=== PATIENT | male | born 1955 | race African-American/Black ===

== ENCOUNTER 2023-12-01 16:52 | Emergency (ER) | payer MEDICARE, MEDICAID ==
[~2023-12-01] VITALS: Ht 188 cm; Wt 122.7 kg
[2023-12-01 18:23] VITALS: BP 194/113; PULSE 71; RESP 18; O2SAT 98
[2023-12-01] MEDS ORDERED: HYD25TP TOP (18:47)
[2023-12-01] MEDS ORDERED: CEPH500C PO (18:47)
== END 2023-12-01 19:02 | disposition home or self-care (01) ==
LOC: ER 16:52
DX: L03.113 Cellulitis of right upper limb (principal); L03.313 Cellulitis of chest wall; I10 Essential (primary) hypertension; Z86.73 Personal history of transient ischemic attack (TIA), and cerebral infarction without residual deficits

== ENCOUNTER 2024-01-03 17:07 | Emergency (ER) | payer MEDICARE, MEDICAID ==
[~2024-01-03] VITALS: Ht 177.8 cm; Wt 118.0 kg
[~2024-01-03 17:07] MED LIST: CEPH500C PO; HYD25TP TOP
[2024-01-03 19:10] LABS: Basophils # (auto) 0.1 10 ^3/uL (0-0.2); Basophils % (auto) 0.6 % (0.0-2.0); Eosinophils # (auto) 0 10 ^3/uL (0-0.8); Hematocrit 44.8 % (41.0-53.0); Hemoglobin 15.3 g/dL (13.5-17.5); Lymphocytes # (auto) 1.5 10 ^3/uL (0.4-5.4); Lymphocytes % (auto) 7.8 % (10.0-50.0); Mean Corpuscular Hgb Conc. 34.1 g/dL (32.0-36.0); Mean Corpuscular Volume 84.9 fL (80.0-100.0); Monocytes # (auto) 2.5 10 ^3/uL (0-1.3); Monocytes % (auto) 13.1 % (0.0-12.0); Neutrophils # (auto) 14.8 10 ^3/uL (1.6-8.6); Neutrophils % (auto) 78.5 % (37.0-80.0); Red Blood Cells 5.28 10^6/uL (4.5-5.90); Red Cell Distribution Width 15.3 % (11.8-14.3); White Blood Cell 18.8 10^3/uL (4.4-10.8)
[2024-01-03 19:31] LABS: Alanine Aminotransferase 28 U/L (7-40); Albumin 4.2 g/dL (3.2-4.8); Alkaline Phosphatase 135 U/L (46-116); Anion Gap 7 (5-15); Aspartate Aminotransferase 23 U/L (13-40); BUN/Creatinine Ratio 15.2 (10.0-20.0); Bilirubin, Total 1.8 mg/dL (0.2-1.0); Blood Urea Nitrogen 22 mg/dL (9-23); Calcium 9.3 mg/dL (8.7-10.4); Carbon Dioxide 28 mmol/L (20-30); Chloride 102 mmol/L (98-107); Glucose 106 mg/dL (74-106); Lipase 32 U/L (12-53); Sodium 137 mmol/L (136-145); Total Protein 6.4 g/dL (5.7-8.2)
[2024-01-03] MEDS: IOHEXOL 300 MG/ML 100ML BOTTLE IJ ONE (20:27)
[2024-01-04] MEDS: FAMOTIDINE 20 MG TAB PO ONE (02:00)
[2024-01-04] MEDS: ACETAMINOPHEN 325 MG TAB PO ONE (02:00)
[2024-01-04] MEDS: MAALOX PLUS or MAALOX 30 ML PO ONE (02:00)
[2024-01-04] MEDS: levoFLOXacin 500MG 100 ML IV ONE (03:10)
[2024-01-04 04:00] VITALS: PULSE 88; RESP 20; O2SAT 90
[2024-01-04] MEDS ORDERED: LEVO500T91 PO (04:28)
[2024-01-04 07:35] VITALS: BP 103/66; PULSE 80; RESP 16; TEMP 98; O2SAT 95
== END 2024-01-04 08:37 | disposition home or self-care (01) ==
LOC: EDBD 17:07 → ER 17:07
DX: N39.0 Urinary tract infection, site not specified (principal); I10 Essential (primary) hypertension; Z86.73 Personal history of transient ischemic attack (TIA), and cerebral infarction without residual deficits; Z88.0 Allergy status to penicillin
CPT/HCPCS: 36415; 71045; 74177; 80053; 83690; 84484; 85025; 93005; 96365; 99285; J1956; Q9967

== ENCOUNTER 2024-10-17 16:48 | Inpatient (IN) | payer MEDICARE, MEDICAID, OTHER ==
[~2024-10-17] VITALS: Ht 188 cm; Wt 140.0 kg
[2024-10-17 05:00] VITALS: BP 135/66; PULSE 77; RESP 16; TEMP 98; O2SAT 90
[~2024-10-17 16:48] MED LIST changes: +LEVO500T91 PO
--- NOTE | 2024-10-17 16:58 | ECG ---
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
--- NOTE | 2024-10-17 18:08 | ED.PDOC ---
HPI Comments 69 y/o M,with PMHx of MO, CVA, and HTN presents to the ED for CC of chest pain. Patient states, that he has been experiencing chest pain with associated shortness of breath x1hr RN OSTOMY. Patient relays, that he had a ground fall x2days ago and has since been experiencing left arm numbness, shoulder pain, and cervical pain following trauma. Patient reports, that he is unsure if chest pain is related to symptoms associated with fall. Patient denies palpitations, LOC, head injury, open wounds, headache, nausea, or vomiting. No other symptoms or modifying factors present at this time. Chief Complaint: Chest Pain Time Seen by MD: 18:00 Primary Care Provider: CHEN Myers Notes: Nurses Notes, Medications, Allergies Allergies: Uncoded Allergies: PENICILLIN (Allergy, Unknown, 12/01/23) Home Meds Active Scripts Levofloxacin Hemihydrate (LEVAQUIN 500 MG) 500 Mg Tab, 500 MG PO DAILY for 7 Days, #7 TAB Prov:THOR BOWDEN MD 01/04/24 Hydrocortone (Hydrocortisone 2.5%) 1 Applic Ap, 1 APPLIC TOP BIDP for 7 Days, #30 GRAMS Prov:MARVIN CURIEL 12/01/23 Cephalexin Monohydrate (Cephalexin) 500 Mg Cap, 1 CAP PO QID for 5 Days, #20 CAP Prov:MARVIN CURIEL 12/01/23 Information Source: Patient Mode of Arrival: Wheelchair Severity: Moderate Timing: Hours Duration: Since onset Prehospital treatment: None Location: Substernal Radiation: No Radiation Onset: At Rest Cardiac Risk Factors: HTN PE Risk Factors: None History of: None Modifying Factors: Nothing Associated Signs and Symptoms: SOB Past Medical History PAST MEDICAL HISTORY: CVA, HTN, MO Surgical History: Denies all surgeries Family History Family History: Reviewed,noncontributory to illness Social History Smoker: Non-Smoker Alcohol: Denies ETOH Use Drugs: Denies Drug Use Lives In: Home Constitutional: denies: chills, diaphoresis, fatigue, fever, malaise, sweats, weakness, others EENTM: denies: blurred vision, double vision, ear bleeding, ear discharge, ear drainage, ear pain, ear ringing, eye pain, eye redness, hearing loss, mouth pain, mouth swelling, nasal discharge, nose bleeding, nose congestion, nose pain, photophobia, tearing, throat pain, throat swelling, voice changes, others Respiratory: reports: shortness of breath; denies: cough, hemoptysis, orthopnea, SOB at rest, SOB with excertion, stridor, wheezing, others Cardiovascular: reports: chest pain, left arm pain, others (left arm weakness); denies: dizzy spells, diaphoresis, Dyspnea on exertion, edema, irregular heart beat, lightheadedness, palpitations, PND, syncope Gastrointestinal: denies: abdomen distended, abdominal pain, blood streaked bowels, constipated, diarrhea, dysphagia, difficulty swallowing, hematemesis, melena, nausea, poor appetite, poor fluid intake, rectal bleeding, rectal pain, vomiting, others Genitourinary: denies: burning, dysuria, flank pain, frequency, hematuria, incontinence, penile discharge, penile sore, pain, testicle pain, testicle swelling, urgency, others Neurological: denies: dizziness, fainting, headache, left sided numbness, left sided weakness, numbness, paresthesia, pre-existing deficit, right sided numbness, right sided weakness, seizure, speech problems, tingling, tremors, weakness, others Musculoskeletal: denies: back pain, gout, joint pain, joint swelling, muscle pain, muscle stiffness, neck pain, others Integumetry: denies: bruises, change in color, change in hair/nails, dryness, laceration, lesions, lumps, rash, wounds, others Allergic/Immunocompromised: denies: Difficulty Healing, Frequent Infections, Hives, Itching, others Hematologic/Lymphatic: denies: anemia, blood clots, easy bleeding, easy bruising, swollen glands, others Endocrine: denies: excessive hunger, excessive sweating, excessive thirst, excessive urination, flushing, intolerance to cold, intolerance to heat, unexplained weight gain, unexplained weight loss, others Psychiatric: denies: anxiety, bipolar disorder, depression, hopeless, panic disorder, schizophrenia, sleepless, suicidal, others All Other Systems: Reviewed and Negative Physical Exam General Appearance: Moderate Distress, Obese HEENT: Normal ENT Inspection, Pharynx Normal, TMs Normal Neck: Full Range of Motion, Non-Tender, Normal, Normal Inspection Respiratory: Chest Non-Tender, Lungs Clear, No Accessory Muscle Use, No Respiratory Distress, Normal Breath Sounds Cardiovascular: No Edema, No JVD, No Murmur, No Gallop, Normal Peripheral Pulses, Regular Rate/Rhythm Breast Exam: Deferred Gastrointestinal: No Organomegaly, Non Tender, No Pulsatile Mass, Normal Bowel Sounds, Soft, Other (Severe obesity with a protuberant abdomen) Genitalia: Deferred Pelvic: Deferred Rectal: Deferred Extremities: Decreased range of motion, Tender Musculoskeletal : Location: Left Extremity Location: Arm, Forearm, Hand, Shoulder Apperance: Swelling, Limited ROM, Tenderness: Moderate Neurologic: Alert, candy maker helper II-XII nml as Tested, No Motor Deficits, Normal Affect, Normal Mood, No Sensory Deficits Cerebellar Function: NOT DONE Reflexes: NOT DONE Skin: Dry, Normal Color, Warm Peripheral Pulses: 1+ carotid (R), 1+ carotid (L) Lymphatic: No Adenopathy EKG EKG : Pulse Rate (adult): 98 [place]: Normal Cardiac Rhythm: NSR, PVC's Comments Bigeminy Was a procedure done? Was a procedure done?: No CP Differential Dx Differential Diagnosis: Angina, Anxiety / Panic Attack, Electrolyte Disorder, Other (Cervical spine radiculopathy) Differential Diagnosis: HTN Essential Differential Diagnosis: Angina, Chest Wall Pain, Costochondritis, Esophageal reflux/spasm, Other (Tendonitis) X-Ray, Labs, Meds, VS Vital Signs Date Time Temp Pulse Resp B/P (MAP) Pulse Ox O2 Delivery O2 Flow Rate FiO2 10/17/24 18:12 98 10/17/24 17:33 98.0 89 18 148/81 (103) 95 98.0 10/17/24 16:55 98 Lab Test 10/17/24 18:44 10/17/24 17:45 Range/Units Troponin I High Sensitivity 14 13 </=54 ng/L White Blood Count 9.0 4.4-10.8 10^3/uL Red Blood Count 5.30 4.5-5.90 10^6/uL Hemoglobin 16.5 13.5-17.5 g/dL Hematocrit 49.5 41.0-53.0 % Mean Corpuscular Volume 93.3 80.0-100.0 fL Mean Corpuscular Hemoglobin 31.1 28.0-32.0 pg Mean Corpuscular Hemoglobin Concent 33.4 32.0-36.0 g/dL Red Cell Distribution Width 14.9 H 11.8-14.3 % Platelet Count 188 140-450 10^3/uL Mean Platelet Volume 9.2 6.9-10.8 fL Neutrophils (%) (Auto) 55.9 37.0-80.0 % Lymphocytes (%) (Auto) 28.1 10.0-50.0 % Monocytes (%) (Auto) 11.1 0.0-12.0 % Eosinophils (%) (Auto) 4.0 0.0-7.0 % Basophils (%) (Auto) 0.9 0.0-2.0 % Neutrophils # (Auto) 5.0 1.6-8.6 10 ^3/uL Lymphocytes # (Auto) 2.5 0.4-5.4 10 ^3/uL Monocytes # (Auto) 1.0 0-1.3 10 ^3/uL Eosinophils # (Auto) 0.4 0-0.8 10 ^3/uL Basophils # (Auto) 0.1 0-0.2 10 ^3/uL Nucleated Red Blood Cells 0.1 % Prothrombin Time Pending Prothrombin Time INR Pending Activated Partial Thromboplast Time Pending Sodium Level Pending Potassium Level Pending Chloride Level Pending Carbon Dioxide Level Pending Anion Gap Pending Blood Urea Nitrogen Pending Creatinine Pending Glomerular Filtration Rate Calc Pending BUN/Creatinine Ratio Pending Serum Glucose Pending Calcium Level Pending Magnesium Level Pending Total Bilirubin Pending Aspartate Amino Transferase (AST) Pending Alanine Aminotransferase (ALT) Pending Alkaline Phosphatase Pending Total Protein Pending Albumin Pending X-Ray, Labs, Meds, VS Comment Course in the emergency department eventful patient came in complaining of chest pain and severe pain to his left shoulder going all the way to the left arm Chest x-ray EKG shows normal sinus rhythm with a multiple PVCs and bigeminy is C-spine CT is negative The shoulder shows rotator cuff tear need further care Troponin 14 and 13 Patient will be admitted for further care Laboratory data pending Dr. Arechiga to follow Time of 1ST Reevaluation: 18:30 Reevaluation 1ST: Unchanged Patient Education/Counseling: Diagnosis, Treatment Family Education/Counseling: No Family Present Assigned to Dr. dr arechiga Change of Shift?: Yes Departure 1 Departure Time of Disposition: 19:23 Impression: Primary Impression: Chest pain Qualified Codes: I20.89 - Other forms of angina pectoris Additional Impressions: Supraventricular bigeminy Rotator cuff tear arthropathy of left shoulder History of myocardial infarction History of CVA (cerebrovascular accident) Disposition: 09 ADMITTED INPATIENT Admit to: Tele Condition: Fair Critical Care Note Critical Care Time?: No Stability Stability form required: Yes Unstable for transfer: Telemetry monitoring (Telemetry monitoring required), Requires medication (Requires Med for stabilization) Heart Score Heart Score: Heart Score Response (Comments) Value History Slightly Suspicious 0 EKG Repolarization Disturb 1 Age >65 2 Risk Factors 1 or 2 risk factors 1 Troponin Normal limit 0 Total 4 I personally scribed for STEPH MANJARREZ MD ([email or web address]) on 10/17/24 at 18:08. Electronically submitted by Bette Ornelas ([email or web address]). STEPH MANJARREZ MD Oct 17, 2024 18:08
--- NOTE | 2024-10-17 18:47 | DVH ---
CLINICAL INDICATION: Tendonitis cervical radiculopathy TECHNIQUE: 2 radiographic views of the left shoulder were obtained. Comparison: None FINDINGS/IMPRESSION: There is no evidence of acute fracture or dislocation. Narrowing of the left acromial humeral joint space may be secondary to rotator cuff tear. If this is of clinical concern recommend nonemergent MRI. The alignment is anatomical. There is no radiopaque foreign body.
--- NOTE | 2024-10-17 18:56 | DVH ---
EXAM: CT CERVICAL WITHOUT CONTRAST INDICATION: Radiculopathy EXAM DATE: 10/17/2024 06:20 PM COMPARISON: None TECHNIQUE: Multiple axial CT images of the cervical spine were obtained using bone algorithm. Axial a nd coronal reformatting was done. Bone and soft tissue windows were reviewed. Radiation Dose Information: CT Dose: CTDI volume is 25.86 mGy. Dose-length product is 686.41 mGy*cm FINDINGS: The cervical alignment is intact. No acute cervical spine fracture is identified. The vertebral body heights are intact. No suspicious osseous lesions are identified. No significant degenerative changes are identified. There is no prevertebral soft tissue swelling. IMPRESSION: 1. No evidence of acute cervical spine fracture or traumatic malalignment. All CT scans at this medical facility are performed using dose modulation techniques as appropriate t o a performed exam including the following: Automated exposure control was utilized; adjustment of th e MA and/or KV according to patient size; and use of iterative reconstruction technique.
[2024-10-17 19:48] LABS: Basophils # (auto) 0.1 10 ^3/uL (0-0.2); Basophils % (auto) 0.9 % (0.0-2.0); Eosinophils # (auto) 0.4 10 ^3/uL (0-0.8); Hematocrit 49.5 % (41.0-53.0); Hemoglobin 16.5 g/dL (13.5-17.5); Lymphocytes # (auto) 2.5 10 ^3/uL (0.4-5.4); Lymphocytes % (auto) 28.1 % (10.0-50.0); Mean Corpuscular Hemoglobin 31.1 pg (28.0-32.0); Mean Corpuscular Hgb Conc. 33.4 g/dL (32.0-36.0); Mean Corpuscular Volume 93.3 fL (80.0-100.0); Monocytes % (auto) 11.1 % (0.0-12.0); Neutrophils % (auto) 55.9 % (37.0-80.0); Nucleated Red Blood Cells % 0.1 %; Platelet Count (auto) 188 10^3/uL (140-450); Red Cell Distribution Width 14.9 % (11.8-14.3)
[2024-10-17 19:54] LABS: Alanine Aminotransferase 20 U/L (7-40); Albumin 4.4 g/dL (3.2-4.8); Aspartate Aminotransferase 22 U/L (13-40); BUN/Creatinine Ratio 11.2 (10.0-20.0); Bilirubin, Total 0.5 mg/dL (0.2-1.0); Blood Urea Nitrogen 11 mg/dL (9-23); Carbon Dioxide 27 mmol/L (20-31); Glucose 95 mg/dL (74-106); Magnesium 2.2 mg/dL (1.6-2.6); Total Protein 6.7 g/dL (5.7-8.2)
[2024-10-17 19:56] LABS: Alkaline Phosphatase 137 U/L (46-116)
[2024-10-17 19:59] LABS: Anion Gap 9 (5-15); Potassium 3.7 mmol/L (3.5-5.1); Sodium 145 mmol/L (136-145)
[2024-10-17 20:01] LABS: Chloride 109 mmol/L (98-107)
[2024-10-17 20:02] LABS: INR 0.97 (0.9-1.15); Partial Thromboplastin Time 26.8 SEC (24.5-34.5); Prothrombin Time 10.3 sec (9.3-11.8)
[2024-10-17 20:34] VITALS: PULSE 81; RESP 13; O2SAT 95
[2024-10-17] MEDS: ASPirin 81 mg TAB PO ONE (20:47)
[2024-10-17] MEDS: KETOROLAC TROMETH 30 MG/ML 1ML VIAL IV ONE (20:59)
--- NOTE | 2024-10-17 21:43 | ED.PDOC ---
Departure 1 Departure Time of Disposition: 21:42 (Patient presented with chest pain that was concerning for possible STEMI, ACS, PE, Pneumonia, Muscle Strain, COPD, Dissection. Data: 1. I ordered and reviewed the result of at least 3 labs including a CBC, BMP, and Troponin. 2. I independently interpreted the following tests: EKG which shows sinus arrhythmia and Chest X-ray which shows benign chest.Risk:This patient has a high risk of morbidity due to further diagnostic testing or treatment and may suffer from an acute cardiac or respiratory disorder. Workup reveals concern for ACS and patient should be admitted for further workup and possible expert consultation. ) Impression: Primary Impression: Chest pain Qualified Codes: I20.89 - Other forms of angina pectoris Additional Impressions: History of myocardial infarction Supraventricular bigeminy Rotator cuff tear arthropathy of left shoulder History of CVA (cerebrovascular accident) Disposition: ADMITTED INPATIENT Admit to: [facility] Condition: Serious Critical Care Note Critical Care Time?: Yes Critical care comment: Acute chest pain Authorized and Performed by: Colleen Mcnair MD Total critical care time: Approximately 39 minutes Due to a high probability of clinically significant, life threatening deterioration, the patient required my highest level of preparedness to intervene emergently and I personally spent this critical care time directly and personally managing the patient. This critical care time included obtaining a history; examining the patient; pulse oximetry; ordering and review of studies; arranging urgent treatment with development of a management plan; evaluation of patient's response to treatment; frequent reassessment; and, discussions with other providers. This critical care time was performed to assess and manage the high probability of imminent, life-threatening deterioration that could result in multi-organ failure. It was exclusive of separately billable procedures and treating other patients and teaching time. Please see my other sections and the rest of the note for further information on patient assessment and treatment. COLLEEN MCNAIR MD Oct 17, 2024 21:43
[2024-10-17] MEDS ORDERED: ACETAMINOPHEN 325 MG TAB PO PRN (22:00)
[2024-10-17] MEDS ORDERED: NITROGLYCERIN 0.4 MG SL TAB SL PRN (22:00)
[2024-10-17] MEDS ORDERED: MORPHINE SULFATE INJ 2 MG/ml SYRG IV PRN (22:00)
[2024-10-17 22:18] LABS: Magnesium 2.1 mg/dL (1.6-2.6)
[2024-10-17 22:20] LABS: Phosphorus 3.6 mg/dL (2.4-5.1)
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
--- NOTE | 2024-10-17 22:33 | DVH ---
CHEST RADIOGRAPH Indication: Chest pain Technique: Single frontal view of the chest was obtained Comparison: XY CHEST PORTABLE on DOS: 01/03/24 FINDINGS: Lines and Tubes: None Lungs: No focal consolidation. Pleura: No effusion. No pneumothorax. Cardiomediastinal contours: Unremarkable Bones: No acute osseous abnormality. IMPRESSION: 1. No acute cardiopulmonary disease.
[2024-10-17] MEDS: ATORVASTATIN 20 MG TAB PO SCH (23:06)
[2024-10-17] MEDS: SODIUM CHLORIDE 0.9% 1,000 ML IV ONE (23:13)
[2024-10-17] MEDS: METOPROLOL SUCCINATE XL 50 MG TAB PO ONE (23:13)
[2024-10-17 23:40] VITALS: PULSE 69; RESP 12; O2SAT 95
[2024-10-17 23:41] LABS: Urine Bacteria None Seen /hpf (None Seen)
[2024-10-18] VITALS (7 sets, daily range): BP systolic 134–149; BP diastolic 77–87; PULSE 65–78; RESP 16–18; TEMP 97.3–98; O2SAT 90–96
[2024-10-18 00:17] LABS: Barbiturate Scree,Urine Neg (NEGATIVE); Opiate Scree,Urine Neg (NEGATIVE)
[2024-10-18 00:18] LABS: Amphetamine Screen, Urine Neg (NEGATIVE); Benzodiazephine Screen, Urine Neg (NEGATIVE); Cannabinoid Screen, Urine Neg (NEGATIVE); Cocaine Screen, Urine Neg (NEGATIVE); Phencyclidine Screen, Urine Neg (NEGATIVE)
[2024-10-18] MEDS: ONDANSETRON HCL 4 MG/2 ML VIAL IV PRN (01:05)
[2024-10-18 01:06] LABS: Urine Blood Negative /uL (Negative); Urine Clarity Clear (Clear); Urine Color Yellow (Yellow); Urine Hyaline Cast FEW /lpf (0 - 2); Urine Mucus FEW (None Seen); Urine Protein, UAD TRACE (Negative); Urine Specific Gravity 1.028 (1.001-1.035); Urine Squamous Epithelial Cell FEW /hpf (<5); Urine Urobilinogen 2 mg/dL (Negative); Urine WBC 1 /HPF (0-3); Urine pH 5.5 (5.0-9.0)
[2024-10-18] MEDS: MORPHINE SULFATE INJ 2 MG/ml SYRG IV PRN (01:06)
[2024-10-18] MEDS ORDERED: NITR0.4S29 SL (02:38)
[2024-10-18] MEDS ORDERED: ALBU0.084 NEB (02:38)
[2024-10-18] MEDS ORDERED: DIPH50CA31 OR (02:38)
[2024-10-18] MEDS: ENOXAPARIN SOD 40 MG/0.4 ML SYRINGE SC SCH (09:12)
[2024-10-18] MEDS: ASPirin 81 mg TAB PO SCH (09:12)
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
[2024-10-18] MEDS: METOPROLOL SUCCINATE XL 50 MG TAB PO SCH (11:21)
[2024-10-18 11:32] LABS: Basophils # (auto) 0.1 10 ^3/uL (0-0.2); Basophils % (auto) 0.9 % (0.0-2.0); Eosinophils # (auto) 0.4 10 ^3/uL (0-0.8); Eosinophils % (auto) 4.5 % (0.0-7.0); Hematocrit 48.5 % (41.0-53.0); Hemoglobin 16.3 g/dL (13.5-17.5); Lymphocytes # (auto) 2.1 10 ^3/uL (0.4-5.4); Lymphocytes % (auto) 25.1 % (10.0-50.0); Mean Corpuscular Hemoglobin 31.1 pg (28.0-32.0); Mean Corpuscular Hgb Conc. 33.6 g/dL (32.0-36.0); Mean Corpuscular Volume 92.6 fL (80.0-100.0); Monocytes # (auto) 0.8 10 ^3/uL (0-1.3); Monocytes % (auto) 9.3 % (0.0-12.0); Neutrophils # (auto) 5.1 10 ^3/uL (1.6-8.6); Neutrophils % (auto) 60.2 % (37.0-80.0); Platelet Count (auto) 187 10^3/uL (140-450); Red Blood Cells 5.24 10^6/uL (4.5-5.90); Red Cell Distribution Width 14.6 % (11.8-14.3); White Blood Cell 8.5 10^3/uL (4.4-10.8)
[2024-10-18 11:39] LABS: Calcium 9.8 mg/dL (8.7-10.4); Chloride 107 mmol/L (98-107); Potassium 3.9 mmol/L (3.5-5.1); Sodium 143 mmol/L (136-145)
[2024-10-18 11:40] LABS: Anion Gap 4 (5-15); Carbon Dioxide 32 mmol/L (20-31)
[2024-10-18 11:45] LABS: Blood Urea Nitrogen 16 mg/dL (9-23); Glucose 99 mg/dL (74-106)
--- NOTE | 2024-10-18 13:30 | DVHSR ---
APPROVED REPORT EXAM: Two-dimensional and M-mode echocardiogram with Doppler and color Doppler. Blood Pressure: 135/66 mmHg INDICATION Chest Pain RISK FACTORS Height: 72, Weight: 325 DIMENSIONS LVDd5.3 (3.8-5.7cm)LA (2D)4.1 (1.9-4.0cm)Aortic Root4.6 (2.0-3.7cm) LVDs3.9 (2.5-4.0cm)LA (MM) (1.9-4.0cm)Aortic Cusp Exc1.6 (1.5-2.0cm) EF (%) 50.0 (55-70%)Rt. Atrium4.9 (1.9-4.0cm)Asc. Aorta3.3 cm IVSd1.5 (0.7-1.1cm)RV (D) (1.8-2.4cm) PWd1.6 (0.7-1.1cm) Mitral Valve MitralMitral Stenosis E wave0.69m/sMV Mean GR.mmHg A wave0.72m/sMV Peak GR.mmHg E/A ratio1.02D MVAcm2 DECEL [id number] 1/2 Timems Aortic Valve Aortic ValveAortic Stenosis V11.35m/Keri Mean GR.9mmHg V22.14m/Keri Peak GR.18mmHg LVOT Diameter2.0 (1.8-2.4cm)Doppler AVA1.98cm2 Pulmonic Valve V20.99m/s Other Information Technically limited study due to body habitus. Patient laying flat on his back. Conclusion lvef 55% moderrate LVH low normal function normal RV function but RV enlarged normal atria no severe valve abnormalities noted normal pericardium
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
[2024-10-19 06:30] VITALS: BP 170/72; PULSE 75; RESP 18; TEMP 98.2; O2SAT 92
[2024-10-19 08:00] VITALS: PULSE 94
[2024-10-19 08:04] LABS: Anion Gap 8 (5-15); Carbon Dioxide 30 mmol/L (20-31); Chloride 106 mmol/L (98-107); Potassium 3.7 mmol/L (3.5-5.1); Sodium 144 mmol/L (136-145)
[2024-10-19 08:05] LABS: Calcium 9.6 mg/dL (8.7-10.4)
[2024-10-19 08:10] LABS: BUN/Creatinine Ratio 16.7 (10.0-20.0); Blood Urea Nitrogen 13 mg/dL (9-23); Glucose 96 mg/dL (74-106)
[2024-10-19] MEDS ORDERED: hydrALAZINE HCL 20 MG/ML VL IV PRN (08:45)
[2024-10-19] MEDS ORDERED: METO25TA93 PO (08:45)
[2024-10-19] MEDS ORDERED: AMLO1TAB23 PO (08:45)
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
[2024-10-19 09:00] VITALS: BP 151/56; PULSE 54; RESP 17; TEMP 97.9; O2SAT 91
[2024-10-19] MEDS: amLODIPine BESYLATE 5 MG TAB PO ONE (09:50)
[2024-10-19 10:10] LABS: Hepatitis B Surface Antigen Negative (Negative)
[2024-10-19 10:25] LABS: Hepatitis C Antibody Negative (Negative)
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
[2024-10-19 13:00] VITALS: BP 159/94; PULSE 40; RESP 21; TEMP 98.5; O2SAT 94
[2024-10-19 13:13] VITALS: BP 151/56; PULSE 54; RESP 17; TEMP 97.9; O2SAT 91
== END 2024-10-19 16:00 | disposition home or self-care (01) | DRG 74 ==
LOC: ER 16:52 → OVERFLOW 21:48 → TELE-CENTR 21:52
PROVIDERS: ADMIT Internal Medicine; ATTEND Emergency Medicine
DX: M54.12 Radiculopathy, cervical region (principal); I24.9 Acute ischemic heart disease, unspecified; Z68.41 Body mass index [BMI] 40.0-44.9, adult; I10 Essential (primary) hypertension; M75.102 Unspecified rotator cuff tear or rupture of left shoulder, not specified as traumatic; E78.5 Hyperlipidemia, unspecified; R00.8 Other abnormalities of heart beat; F17.210 Nicotine dependence, cigarettes, uncomplicated; E66.01 Morbid (severe) obesity due to excess calories; Z86.73 Personal history of transient ischemic attack (TIA), and cerebral infarction without residual deficits; Z88.0 Allergy status to penicillin; Z79.899 Other long term (current) drug therapy; Z79.2 Long term (current) use of antibiotics; I25.2 Old myocardial infarction; Z85.038 Personal history of other malignant neoplasm of large intestine; Z79.82 Long term (current) use of aspirin
CPT/HCPCS: 36415; 71045; 72125; 73030; 80048; 80053; 80061; 80307; 81001; 82306; 82607; 83036; 83735; 83880; 84100; 84443; 84484; 85025; 85610; 85730; 86803; 87340; 93005; 93306; 96361; 96374; 97163; 99291; G0378; J1885; J2405

== ENCOUNTER 2024-10-24 14:07 | Emergency (ER) | payer OTHER, MEDICAID ==
[~2024-10-24] VITALS: Ht 30.5 cm; Wt 0.5 kg
[~2024-10-24 14:07] MED LIST changes: +ALBU0.084 NEB; +AMLO1TAB23 PO; -CEPH500C PO; +DIPH50CA31 OR; -HYD25TP TOP; -LEVO500T91 PO; +METO25TA93 PO; +NITR0.4S29 SL
--- NOTE | 2024-10-24 14:29 | ED.PDOC ---
History of Present Illness HPI Comments 69 year old male PATEL presents to the ED with chief complaint of left shoulder pain. Patient reports that he has a previous left shoulder injury and 5 days ago he had an MRI performed, showing a rotator cuff tear. Patient relays that he has had increased, unbearable pain today, prompting him to call 911. Patient denies any numbness, tingling, or weakness of his left upper extremity. Time Seen by MD: 14:23 Primary Care Provider: CHEN Reviewed Notes: Nurses Notes, Geophysical Prospector Notes, Medications, Allergies Allergies: Coded Allergies: Penicillins (Verified Allergy, Unknown, 10/18/24) Uncoded Allergies: polyester (Allergy, Mild, 10/18/24) "itch" Home Meds Active Scripts Amlodipine Besylate (Amlodipine Besylate) 10 Mg Tab, 1 TAB PO DAILY for 30 Days, #30 TAB 5 Refills Prov:STEWART MILLER RESIDENT 10/19/24 Metoprolol Succinate (Metoprolol Succinate Er) 25 Mg Tab, 1 TAB PO DAILY for 30 Days, #30 TAB 5 Refills Prov:STEWART MILLER RESIDENT 10/19/24 Reported Medications Albuterol Sulfate (Albuterol Sulfate) 0.083 % Neb, 1 VIAL NEB Q4HPRN, #50 VIAL 10/18/24 Nitroglycerin (NTROSTAT SUBLINGUAL) 0.4 Mg Sl, 0.4 MG SL PRN, TAB *MAY REPEAT EVERY 5 MINUTES X 3 TOTAL IF NO RELIEF, INITIATE ANALGESIC THERAPY. NOTIFY PHYSICIAN *Do not crush. 10/18/24 Diphenhydramine Hcl (BANOPHEN) 50 Mg Cap, 50 MG OR, CAP 10/18/24 Discontinued Scripts Levofloxacin Hemihydrate (LEVAQUIN 500 MG) 500 Mg Tab, 500 MG PO DAILY for 7 Days, #7 TAB Prov:THOR BOWDEN MD 01/04/24 Hydrocortone (Hydrocortisone 2.5%) 1 Applic Ap, 1 APPLIC TOP BIDP for 7 Days, #30 GRAMS Prov:MARVIN CURIEL 12/01/23 Cephalexin Monohydrate (Cephalexin) 500 Mg Cap, 1 CAP PO QID for 5 Days, #20 CAP Prov:MARVIN CURIEL 12/01/23 Information Source: Patient, Emergency Med Personnel Mode of Arrival: EMS Severity: Moderate Timing: Hours Duration: Since onset Prehospital treatment: None Past Medical History PAST MEDICAL HISTORY: CVA, HTN, [place] Surgical History: Denies all surgeries Family History Family History: Reviewed,noncontributory to illness Social History Smoker: Non-Smoker Alcohol: Denies ETOH Use Drugs: Denies Drug Use Lives In: Home Constitutional: denies: chills, diaphoresis, fatigue, fever, malaise, sweats, weakness, others EENTM: denies: blurred vision, double vision, ear bleeding, ear discharge, ear drainage, ear pain, ear ringing, eye pain, eye redness, hearing loss, mouth pain, mouth swelling, nasal discharge, nose bleeding, nose congestion, nose pain, photophobia, tearing, throat pain, throat swelling, voice changes, others Respiratory: denies: cough, hemoptysis, orthopnea, SOB at rest, shortness of breath, SOB with excertion, stridor, wheezing, others Cardiovascular: denies: chest pain, dizzy spells, diaphoresis, Dyspnea on exertion, edema, irregular heart beat, left arm pain, lightheadedness, palpitations, PND, syncope, others Gastrointestinal: denies: abdomen distended, abdominal pain, blood streaked bowels, constipated, diarrhea, dysphagia, difficulty swallowing, hematemesis, melena, nausea, poor appetite, poor fluid intake, rectal bleeding, rectal pain, vomiting, others Genitourinary: denies: burning, dysuria, flank pain, frequency, hematuria, incontinence, penile discharge, penile sore, pain, testicle pain, testicle swelling, urgency, others Neurological: denies: dizziness, fainting, headache, left sided numbness, left sided weakness, numbness, paresthesia, pre-existing deficit, right sided numbness, right sided weakness, seizure, speech problems, tingling, tremors, weakness, others Musculoskeletal: reports: others (Lt shoulder pain); denies: back pain, gout, joint pain, joint swelling, muscle pain, muscle stiffness, neck pain Integumetry: denies: bruises, change in color, change in hair/nails, dryness, laceration, lesions, lumps, rash, wounds, others Allergic/Immunocompromised: denies: Difficulty Healing, Frequent Infections, Hives, Itching, others Hematologic/Lymphatic: denies: anemia, blood clots, easy bleeding, easy bruising, swollen glands, others Endocrine: denies: excessive hunger, excessive sweating, excessive thirst, excessive urination, flushing, intolerance to cold, intolerance to heat, un explained weight gain, unexplained weight loss, others Psychiatric: denies: anxiety, bipolar disorder, depression, hopeless, panic disorder, schizophrenia, sleepless, suicidal, others All Other Systems: Reviewed and Negative Physical Exam General Appearance: No Apparent Distress, Normal HEENT: Normal ENT Inspection, Pharynx Normal, TMs Normal Neck: Full Range of Motion, Non-Tender, Normal, Normal Inspection Respiratory: Chest Non-Tender, Lungs Clear, No Accessory Muscle Use, No Respiratory Distress, Normal Breath Sounds Cardiovascular: No Edema, No JVD, No Murmur, No Gallop, Normal Peripheral Pu lses, Regular Rate/Rhythm Breast Exam: Deferred Gastrointestinal: No Organomegaly, Non Tender, No Pulsatile Mass, Normal Bowel Sounds, Soft Genitalia: Deferred Pelvic: Deferred Rectal: Deferred Extremities: No calf tenderness, Normal capillary refill, Normal inspection, Normal range of motion, Non-tender, No pedal edema Musculoskeletal : Location: Left Extremity Location: Shoulder Apperance: Tenderness Neurologic: Alert, lime filter operator II-XII nml as Tested, No Motor Deficits, Normal Affect, Normal Mood, No Sensory Deficits Cerebellar Function: Normal Reflexes: Normal Skin: Dry, Normal Color, Warm Lymphatic: No Adenopathy Was a procedure done? Was a procedure done?: No Differential Dx Considerations may include: Fracture, sprain, strain, dislocation, contusion X-Ray, Labs, Meds, VS Vital Signs Date Time Temp Pulse Resp B/P (MAP) Pulse Ox O2 Delivery O2 Flow Rate FiO2 10/24/24 14:35 98.3 80 16 113/83 (93) 94 98.3 Current Medications Medications (Trade) Dose Ordered Sig/Radha Route Start Time Stop Time Status Last Admin Acetaminophen/ Hydrocodone Bitart ([place] 5/325MG Tab) 1 tab ONCE ONCE PO 10/24/24 14:30 10/24/24 14:47 DC 10/24/24 16:04 Time of 1ST Reevaluation: 15:23 Reevaluation 1ST: Unchanged Patient Education/Counseling: Diagnosis, Treatment Family Education/Counseling: No Family Present Additional Information The following tests were ordered, and results were reviewed by me: Lt shoulder XR Additional Information was gathered from interviewing the following independent historians: None I reviewed and agreed with the following test results read by other providers: Lt shoulder XR I discussed treatment and results with medical personnel and: patient Comprehensive systems review obtained and negative except for what is stated in the HPI. Departure 1 Departure Time of Disposition: 16:57 (Patient presents with chronic left shoulder rotator cuff tear. We will discharge home with outpatient follow up) Impression: Primary Impression: Rotator cuff tear arthropathy of left shoulder Disposition: 01 HOME / SELF CARE / HOMELESS Condition: Stable Referrals: JOSEPH FIGUEROA MD Additional Instructions: It is important to follow up with your orthopedic surgeon this week. For pain you can take the followinam: Ibuprofen 400mg with food Noon: Acetaminophen 1000mg 4pm: Ibuprofen 400mg with food 8pm: Acetaminophen 1000mg If your symptoms worsen or you have any other concerns then please return to the ER. Discharged With: Self Critical Care Note Critical Care Time?: No Stability Stability form required: No Heart Score Heart Score: Heart Score Response (Comments) Value History N/A 0 EKG N/A 0 Age N/A 0 Risk Factors N/A 0 Troponin N/A 0 Total 0 I personally scribed for COLLEEN YBARRA MD ([email or web address]) on 10/24/24 at 14:29. Electronically submitted by Hector Knapp ([email or web address]). COLLEEN YBARRA MD October 24, 2024 14:29
--- NOTE | 2024-10-24 15:12 | DVH ---
EXAM: XY L SHOULDER 2+ VIEW XRAY CLINICAL HISTORY: worsening left shoulder pain COMPARISON: XY L SHOULDER 2+ VIEW XRAY on DOS: 10/17/24 TECHNIQUE: XY L SHOULDER 2+ VIEW XRAY Findings/Impression: 2 views of the left shoulder. There is no evidence of an acute fracture, dislocation, blastic, or lytic lesions. No radiopaque foreign bodies. No joint effusion or superficial soft tissue abnormalities.
[2024-10-24 16:04] VITALS: PULSE 72; RESP 16; O2SAT 97
[2024-10-24] MEDS: HYDROcodone-ACET 5/325MG TAB PO ONE (16:04)
[2024-10-24 17:46] VITALS: BP 130/86; PULSE 88; RESP 16; TEMP 97.9; O2SAT 98
== END 2024-10-24 18:00 | disposition home or self-care (01) ==
LOC: EDBD 14:07 → ER 14:07
DX: M75.102 Unspecified rotator cuff tear or rupture of left shoulder, not specified as traumatic (principal); I10 Essential (primary) hypertension; I25.2 Old myocardial infarction; Z88.0 Allergy status to penicillin; Z86.73 Personal history of transient ischemic attack (TIA), and cerebral infarction without residual deficits; Z79.899 Other long term (current) drug therapy
CPT/HCPCS: 73030

== ENCOUNTER 2024-11-20 13:34 | Inpatient (IN) | payer OTHER, MEDICAID ==
[~2024-11-20] VITALS: Ht 188 cm; Wt 140.4 kg
[2024-11-20] VITALS (7 sets, daily range): BP systolic 119–136; BP diastolic 68–75; PULSE 77–93; RESP 12–20; TEMP 97–99; O2SAT 92–100
--- NOTE | 2024-11-20 13:42 | ED.PDOC ---
History of Present Illness HPI Comments 69-year-old male with PMHx CVA, TIA, [place], HTN brought in by EMS presents with a chief complaint of SOB x 2 days with associated cough, edema, nausea and vomiting. Patient states that his cough has been productive for the past 2 days and produces white sputum. Patient is on Lasix, but denies any CHF diagnosis. Patient has swelling to his bilateral lower legs. No other symptoms modifying factors present at this time. Time Seen by MD: 13:34 Primary Care Provider: CHEN Reviewed Notes: Nurses Notes, Medications, Allergies Allergies: Coded Allergies: Penicillins (Verified Allergy, Unknown, 10/18/24) Uncoded Allergies: polyester (Allergy, Mild, 10/18/24) "itch" Home Meds Active Scripts Amlodipine Besylate (Amlodipine Besylate) 10 Mg Tab, 1 TAB PO DAILY for 30 Days, #30 TAB 5 Refills Prov:STEWART MILLER RESIDENT 10/19/24 Metoprolol Succinate (Metoprolol Succinate Er) 25 Mg Tab, 1 TAB PO DAILY for 30 Days, #30 TAB 5 Refills Prov:STEWART MILLER RESIDENT 10/19/24 Reported Medications Albuterol Sulfate (Albuterol Sulfate) 0.083 % Neb, 1 VIAL NEB Q4HPRN, #50 VIAL 10/18/24 Nitroglycerin (NTROSTAT SUBLINGUAL) 0.4 Mg Sl, 0.4 MG SL PRN, TAB *MAY REPEAT EVERY 5 MINUTES X 3 TOTAL IF NO RELIEF, INITIATE ANALGESIC THERAPY. NOTIFY PHYSICIAN *Do not crush. 10/18/24 Diphenhydramine Hcl (BANOPHEN) 50 Mg Cap, 50 MG OR, CAP 10/18/24 Information Source: Patient, Emergency Med Personnel Mode of Arrival: EMS Severity: Moderate Timing: Days Duration: Since onset Prehospital treatment: 12 Lead EKG, Contract Manager Past Medical History PAST MEDICAL HISTORY: CVA, HTN, [place], TIA Surgical History (Other): ABDOMEN, RIGHT LEG Family History Family History: Reviewed,noncontributory to illness Social History Smoker: Non-Smoker Alcohol: Denies ETOH Use Drugs: Denies Drug Use Lives In: Home Constitutional: denies: chills, diaphoresis, fatigue, fever, malaise, sweats, weakness, others EENTM: denies: blurred vision, double vision, ear bleeding, ear discharge, ear drainage, ear pain, ear ringing, eye pain, eye redness, hearing loss, mouth pain, mouth swelling, nasal discharge, nose bleeding, nose congestion, nose pain, photophobia, tearing, throat pain, throat swelling, voice changes, others Respiratory: reports: cough, shortness of breath; denies: hemoptysis, orthopnea, SOB at rest, SOB with excertion, stridor, wheezing, others Cardiovascular: reports: edema; denies: chest pain, dizzy spells, diaphoresis, Dyspnea on exertion, irregular heart beat, left arm pain, lightheadedness, palpitations, PND, syncope, others Gastrointestinal: reports: abdomen distended, nausea, vomiting; denies: abdominal pain, blood streaked bowels, constipated, diarrhea, dysphagia, difficulty swallowing, hematemesis, melena, poor appetite, poor fluid intake, rectal bleeding, rectal pain, others Genitourinary: denies: burning, dysuria, flank pain, frequency, hematuria, incontinence, penile discharge, penile sore, pain, testicle pain, testicle swelling, urgency, others Neurological: denies: dizziness, fainting, headache, left sided numbness, left sided weakness, numbness, paresthesia, pre-existing deficit, right sided numbness, right sided weakness, seizure, speech problems, tingling, tremors, weakness, others Musculoskeletal: denies: back pain, gout, joint pain, joint swelling, muscle pain, muscle stiffness, neck pain, others Integumetry: denies: bruises, change in color, change in hair/nails, dryness, laceration, lesions, lumps, rash, wounds, others Allergic/Immunocompromised: denies: Difficulty Healing, Frequent Infections, Hives, Itching, others Hematologic/Lymphatic: denies: anemia, blood clots, easy bleeding, easy bruising, swollen glands, others Endocrine: denies: excessive hunger, excessive sweating, excessive thirst, excessive urination, flushing, intolerance to cold, intolerance to heat, unexplained weight gain, unexplained weight loss, others Psychiatric: denies: anxiety, bipolar disorder, depression, hopeless, panic disorder, schizophrenia, sleepless, suicidal, others All Other Systems: Reviewed and Negative Physical Exam General Appearance: Moderate Distress HEENT: Normal ENT Inspection, Pharynx Normal, TMs Normal Neck: Full Range of Motion, Non-Tender, Normal, Normal Inspection Respiratory: Chest Non-Tender, Lungs Clear, No Accessory Muscle Use, No Respiratory Distress, Normal Breath Sounds Cardiovascular: No Edema, No JVD, No Murmur, No Gallop, Normal Peripheral Pulses, Regular Rate/Rhythm Breast Exam: Deferred Gastrointestinal: No Organomegaly, Non Tender, No Pulsatile Mass, Normal Bowel Sounds, Soft Genitalia: Deferred Pelvic: Deferred Rectal: Deferred Extremities: No calf tenderness, Normal capillary refill, No pedal edema Musculoskeletal : Apperance: Normal Neurologic: Alert, supply service worker II-XII nml as Tested, Motor Weakness (And discharged), Normal Affect, Normal Mood, No Sensory Deficits Cerebellar Function: Normal Reflexes: Normal Skin: Dry, Pallor, Warm Lymphatic: No Adenopathy Was a procedure done? Was a procedure done?: No EKG EKG : Pulse Rate (adult): 74 [place]: Normal Cardiac Rhythm: NSR Block: None Hypertrophy: None ST: Normal Differential Dx Considerations may include: Generalized weakness, electrolyte imbalance, CHF, pneumonia, PE X-Ray, Labs, Meds, VS Vital Signs Date Time Temp Pulse Resp B/P (MAP) Pulse Ox O2 Delivery O2 Flow Rate FiO2 11/20/24 15:43 99.0 80 18 136/88 (104) 99 99.0 11/20/24 13:45 99.5 59 22 148/70 (96) 96 99.5 11/20/24 13:42 74 11/20/24 13:37 74 Lab Test 11/20/24 16:40 11/20/24 14:47 11/20/24 14:10 11/20/24 13:52 Range/Units Troponin I High Sensitivity 17 16 14 </=54 ng/L Influenza Type A Antigen Negative Negative Influenza Type B Antigen Negative Negative SARS-CoV-2 Antigen (Rapid) Negative NEGATIVE White Blood Count 7.7 4.4-10.8 10^3/uL Red Blood Count 5.00 4.5-5.90 10^6/uL Hemoglobin 15.5 13.5-17.5 g/dL Hematocrit 46.5 41.0-53.0 % Mean Corpuscular Volume 93.0 80.0-100.0 fL Mean Corpuscular Hemoglobin 31.0 28.0-32.0 pg Mean Corpuscular Hemoglobin Concent 33.3 32.0-36.0 g/dL Red Cell Distribution Width 14.8 H 11.8-14.3 % Platelet Count 159 140-450 10^3/uL Mean Platelet Volume 8.3 6.9-10.8 fL Neutrophils (%) (Auto) 68.8 37.0-80.0 % Lymphocytes (%) (Auto) 15.0 10.0-50.0 % Monocytes (%) (Auto) 13.4 H 0.0-12.0 % Eosinophils (%) (Auto) 2.3 0.0-7.0 % Basophils (%) (Auto) 0.5 0.0-2.0 % Neutrophils # (Auto) 5.3 1.6-8.6 10 ^3/uL Lymphocytes # (Auto) 1.1 0.4-5.4 10 ^3/uL Monocytes # (Auto) 1.0 0-1.3 10 ^3/uL Eosinophils # (Auto) 0.2 0-0.8 10 ^3/uL Basophils # (Auto) 0 0-0.2 10 ^3/uL Nucleated Red Blood Cells 0.1 % Sodium Level 141 136-145 mmol/L Potassium Level 3.8 3.5-5.1 mmol/L Chloride Level 107 98-107 mmol/L Carbon Dioxide Level 29 20-31 mmol/L Anion Gap 5 5-15 Blood Urea Nitrogen 9 9-23 mg/dL Creatinine 0.87 0.700-1.30 mg/dL Glomerular Filtration Rate Calc 94 >90 mL/min BUN/Creatinine Ratio 10.3 10.0-20.0 Serum Glucose 92 74-106 mg/dL Lactic Acid Level 1.7 0.4-2.0 mmol/L Calcium Level 9.5 8.7-10.4 mg/dL B-Type Natriuretic Peptide 76.21 0-100 pg/mL Chest X-Ray Impression: Left basilar airspace opacities. The patient's CBC is within normal limits The chemistry panel is within normal limits The BNP is within normal limits The troponin level x3 is within normal limits The COVID test is negative The influenza a and influenza B are negative Images Reviewed?: Images reviewed and evaluated by me Time of 1ST Reevaluation: 14:04 Reevaluation 1ST: Unchanged Patient Education/Counseling: Diagnosis, Treatment, Prognosis Family Education/Counseling: No Family Present Sepsis Sepsis Reasesment Focused Exam Orders: Laboratory Tests 11/20/24 13:52: Lactic Acid Level 1.7 Departure 1 Departure Time of Disposition: 17:19 Impression: Primary Impression: Diastolic heart failure Qualified Codes: I50.33 - Acute on chronic diastolic (congestive) heart failure Additional Impressions: Generalized weakness Acute respiratory failure Qualified Codes: J96.00 - Acute respiratory failure, unspecified whether with hypoxia or hypercapnia Pedal edema Disposition: ADMITTED INPATIENT Admit to: Tele Condition: Fair Critical Care Note Critical Care Time?: Yes (45 min-critical care time only) Stability Stability form required: Yes Unstable for transfer: Telemetry monitoring (Telemetry monitoring required), ED Physician Assesment (Clinical assesment) Heart Score Heart Score: Heart Score Response (Comments) Value History N/A 0 EKG N/A 0 Age N/A 0 Risk Factors N/A 0 Troponin N/A 0 Total 0 I personally scribed for DELMI SANFORD MD ([email or web address]) on 11/20/24 at 13:42. Electronically submitted by Jeff Ruiz ([email or web address]). I personally scribed for DELMI SANFORD MD ([email or web address]) on 11/20/24 at 16:24. Electronically submitted by Jeff Ruiz ([email or web address]). DELMI SANFORD MD Nov 20, 2024 13:42
[2024-11-20 14:06] LABS: Basophils # (auto) 0 10 ^3/uL (0-0.2); Basophils % (auto) 0.5 % (0.0-2.0); Eosinophils # (auto) 0.2 10 ^3/uL (0-0.8); Eosinophils % (auto) 2.3 % (0.0-7.0); Hematocrit 46.5 % (41.0-53.0); Hemoglobin 15.5 g/dL (13.5-17.5); Lymphocytes # (auto) 1.1 10 ^3/uL (0.4-5.4); Mean Corpuscular Hgb Conc. 33.3 g/dL (32.0-36.0); Monocytes % (auto) 13.4 % (0.0-12.0); Neutrophils # (auto) 5.3 10 ^3/uL (1.6-8.6); Neutrophils % (auto) 68.8 % (37.0-80.0); Nucleated Red Blood Cells % 0.1 %; Platelet Count (auto) 159 10^3/uL (140-450); Red Cell Distribution Width 14.8 % (11.8-14.3); White Blood Cell 7.7 10^3/uL (4.4-10.8)
[2024-11-20 14:12] LABS: Chloride 107 mmol/L (98-107); Potassium 3.8 mmol/L (3.5-5.1); Sodium 141 mmol/L (136-145)
[2024-11-20 14:14] LABS: Anion Gap 5 (5-15); Calcium 9.5 mg/dL (8.7-10.4); Carbon Dioxide 29 mmol/L (20-31)
[2024-11-20 14:19] LABS: BUN/Creatinine Ratio 10.3 (10.0-20.0); Blood Urea Nitrogen 9 mg/dL (9-23); Glucose 92 mg/dL (74-106)
--- NOTE | 2024-11-20 14:58 | DVH ---
CHEST RADIOGRAPH Indication: sob Technique: Single frontal view of the chest was obtained Comparison: None FINDINGS: The cardiac silhouette is unremarkable. The lungs demonstrate left basilar airspace opacities. The pu lmonary vasculature is unremarkable. There is no pleural effusion.. There is no pneumothorax. IMPRESSION: 1. Left basilar airspace opacities.
[2024-11-20 15:54] LABS: COVID19 ANTIGEN SOFIA FIA NEGATIVE (NEGATIVE); Rapid Influenza A Negative (Negative); Rapid Influenza B Negative (Negative)
[2024-11-20] MEDS ORDERED: DOCUSATE SOD 100 MG CAP PO PRN (18:30)
[2024-11-20] MEDS ORDERED: ONDANSETRON HCL 4 MG/2 ML VIAL IV PRN (18:30)
[2024-11-20] MEDS ORDERED: ACETAMINOPHEN 325 MG TAB PO PRN (18:30)
[2024-11-20] MEDS ORDERED: hydrALAZINE HCL 20 MG/ML VL IV PRN (18:30)
[2024-11-20] MEDS: IPRATROPIUM BROM 0.5 MG/2.5ML INH SOL NEB PRN (18:53)
[2024-11-20] MEDS: ALBUTEROL SULF 2.5 MG/0.5ML(0.5%) NEB SOLN NEB PRN (18:53)
--- NOTE | 2024-11-20 19:01 | ECG ---
[facility] Test Date: 2024-11-20 Test Time: 13:37:21 Pat Name: SUBAH BENNETT Department: ED Room: 0291T Gender: M Hotel Maid: : 1955 Requested By: DELMI SANFORD Order Number: [id number] Reading MD: Edwin Wallis Measurements Intervals Ono Rate: 74 P: -2 TN: 150 QRS: -64 QRSD: 96 T: 79 QT: 406 QTc: 451 Interpretive Statements Sinus rhythm Ventricular bigeminy Left anterior fascicular block Minimal ST depression, anterolateral leads Electronically Signed On 11-21-2024 14:58:56 PDT by Edwin Wallis Please click the below link to view image of tracing.
--- NOTE | 2024-11-20 19:05 | DVHHP2 ---
History of Present Illness Reason for Visit: Acute respiratory failure History of Present Illness The patient is a 69 year old male with past medical history CVA, hypertension, [place], and TIA who presented to [facility] ED with complaint of shortness of breaths. Patient reports experiencing difficulty breathing, incr eased work of breathing, associated with productive cough, nausea, vomiting, getting worse that prompted this visit. Patient was seen and evaluated in the ED, laboratory data shows WBC 7.7, platelets 159, sodium 141, potassium 3.8, BUN nine, creatinine 0.87, glucose 92, troponin 16, BNP 76.21, blood pressure 148/70, heart rate 80, temperature 99.0 F, O2 saturation 98% on oxygen. Chest x-ray revealing left basilar airspace opacities. Patient was given breathing treatment, IV Solu-Medrol, please see medication orders section in the computer. On my assessment, patient denied chest pain, no headache, no dizziness, currently on oxygen, no nausea, no vomiting, no fever, no chills. Patient was admitted for further evaluation and medical management. Past Medical History CVA, HTN, [place], TIA Past Surgical History Abdomen/right leg surgery Family History Reviewed, noncontributory to the management of this case. Past Social History The patient lives at home, denies smoking, alcohol or illicit drugs abuse. Review of Systems Constitutional: Yes: Weakness; No: Fever, Chills, Sweats, Malaise, Other Eyes: No: Pain, Vision change, Conjunctivae inflammation, Eyelid inflammation, Other, Redness ENT: No: Ear pain, Ear discharge, Nose pain, Nose discharge, Nose congestion, Mouth pain, Mouth swelling, Throat pain, Throat swelling, Other Respiratory: Cough, Shortness of breath, SOB with excertion, Other (SOB at rest); No: Dry, Wheezing, Hemoptysis, Pleuritic Pain, Sputum, Wheezing Cardiovascular: No: Chest Pain, Palpitations, Orthopnea, Paroxysmal Noc. Dyspnea, Edema, Lt Headedness, Other Gastrointestinal: No: Nausea, Vomiting, Abdominal Pain, Diarrhea, Constipation, Melena, Hematochezia, Other Genitourinary: No Dysuria, No Frequency, No Incontinence, No Hematuria, No Retention, No Other Musculoskeletal: No: other, neck pain, shoulder pain, arm pain, back pain, hand pain, leg pain, foot pain Skin: No: Rash, Lesions, Jaundice, Bruising, Other Neurological: No: Weakness, Numbness, Incoordination, Change in speech, Confusion, Seizures, Other Allergies: Coded Allergies: Penicillins (Verified Allergy, Unknown, 10/18/24) Uncoded Allergies: polyester (Allergy, Mild, 10/18/24) "itch" Medications Current Medications Medications Dose Ordered Sig/Radha Route Start Time Stop Time Status Last Admin Dose Admin Metoprolol Tartrate 25 mg BID PO 11/20/24 22:00 Amlodipine Besylate 5 mg DAILY PO 11/21/24 10:00 Hydralazine HCl 10 mg Q6HP PRN IV 11/20/24 18:30 Aspirin 81 mg DAILY PO 11/21/24 10:00 Sodium Chloride 10 ml Q8HR IV 11/20/24 22:00 Acetaminophen/ Hydrocodone Bitart 1 tab Q4HP PRN PO 11/20/24 18:30 Ondansetron HCl 4 mg Q4HP PRN IV 11/20/24 18:30 Docusate Sodium 100 mg BIDPRN PRN PO 11/20/24 18:30 Acetaminophen 650 mg Q6HP PRN PO 11/20/24 18:30 Albuterol 2.5 mg Q4HPRN PRN NEB 11/20/24 18:30 11/20/24 18:53 2.5 MG Ipratropium [place] 0.5 mg Q4HPRN PRN NEB 11/20/24 18:30 11/20/24 18:53 0.5 MG Exam Vital Signs Vital Signs Date Time Temp Pulse Resp B/P (MAP) Pulse Ox O2 Delivery O2 Flow Rate FiO2 11/20/24 18:44 93 18 94 Room Air* 0 21 11/20/24 18:44 98.2 160/78 (105) 98.2 General Appearance: Alert, Oriented X3, Cooperative, No acute distress HEENT: Atraumatic, PERRLA, EOMI, Mucous membr. moist/pink Respiratory: Normal air movement, Other (Diminished breath sounds) Cardiovascular: Regular rate, Normal S1, Normal S2, No murmurs Abdominal: Normal bowel sounds, Soft, No tenderness, No hepatospenomegaly, No masses Extremities: No clubbing, No cyanosis, No edema, Normal pulses, No tenderness/swelling Skin: No rashes, No breakdown, No significant lesion Neuro: Normal speech, Normal tone, Sensation intact, Cranial nerves 3-12 NL, Reflexes 2+, Other (Generalized weakness) Psych/Mental Status: Mental status NL, Mood NL Labs/Xrays Labs Test 11/20/24 16:40 11/20/24 14:10 11/20/24 13:52 Range/Units Troponin I High Sensitivity 17 </=54 ng/L Influenza Type A Antigen Negative Negative Influenza Type B Antigen Negative Negative SARS-CoV-2 Antigen (Rapid) Negative NEGATIVE White Blood Count 7.7 4.4-10.8 10^3/uL Red Blood Count 5.00 4.5-5.90 10^6/uL Hemoglobin 15.5 13.5-17.5 g/dL Hematocrit 46.5 41.0-53.0 % Mean Corpuscular Volume 93.0 80.0-100.0 fL Mean Corpuscular Hemoglobin 31.0 28.0-32.0 pg Mean Corpuscular Hemoglobin Concent 33.3 32.0-36.0 g/dL Red Cell Distribution Width 14.8 H 11.8-14.3 % Platelet Count 159 140-450 10^3/uL Mean Platelet Volume 8.3 6.9-10.8 fL Neutrophils (%) (Auto) 68.8 37.0-80.0 % Lymphocytes (%) (Auto) 15.0 10.0-50.0 % Monocytes (%) (Auto) 13.4 H 0.0-12.0 % Eosinophils (%) (Auto) 2.3 0.0-7.0 % Basophils (%) (Auto) 0.5 0.0-2.0 % Neutrophils # (Auto) 5.3 1.6-8.6 10 ^3/uL Lymphocytes # (Auto) 1.1 0.4-5.4 10 ^3/uL Monocytes # (Auto) 1.0 0-1.3 10 ^3/uL Eosinophils # (Auto) 0.2 0-0.8 10 ^3/uL Basophils # (Auto) 0 0-0.2 10 ^3/uL Nucleated Red Blood Cells 0.1 % Sodium Level 141 136-145 mmol/L Potassium Level 3.8 3.5-5.1 mmol/L Chloride Level 107 98-107 mmol/L Carbon Dioxide Level 29 20-31 mmol/L Anion Gap 5 5-15 Blood Urea Nitrogen 9 9-23 mg/dL Creatinine 0.87 0.700-1.30 mg/dL Glomerular Filtration Rate Calc 94 >90 mL/min BUN/Creatinine Ratio 10.3 10.0-20.0 Serum Glucose 92 74-106 mg/dL Lactic Acid Level 1.7 0.4-2.0 mmol/L Calcium Level 9.5 8.7-10.4 mg/dL B-Type Natriuretic Peptide 76.21 0-100 pg/mL PATIENT: SUBHA BENNETT ACCT: [id number] UNIT: [id number] : 1955 LOC: ER ROOM / BED: / AGE / SEX: 69 / M ADM STATUS: REG ER SERVICE 1356 ORDERING PHYSICIAN: DELMI SANFORD MD PROCEDURE(s): CXRP - CHEST PORTABLE REASON: sob ORDER NUMBER(s): [id number], ACCESSION NUMBER(s): [id number] CHEST RADIOGRAPH Indication: sob Technique: Single frontal view of the chest was obtained Comparison: None FINDINGS: The cardiac silhouette is unremarkable. The lungs demonstrate left basilar airspace opacities. The pulmonary vasculature is unremarkable. There is no pleural effusion. There is no pneumothorax. IMPRESSION: 1. Left basilar airspace opacities. Assessment/Plan Assessment/Plan Acute respiratory failure Acute respiratory failure with hypoxia Generalized weakness Plan 1. Admit to telemetry unit 2. Breathing treatment 3. Pain control management 4. Management of fluids and electrolytes 5. Consultation for pulmonology 6. Diagnostic tests chest x-ray 7. DVT prophylaxis on SCDs 8. Repeat labs CBC, CMP in a.m. 9. Continue with current medical management 10. Treatment plan discussed with patient and RN. Patient verbalized understanding. Plan discussed with: Patient, Other (RN) My Orders Orders - SOILA ARIAS DNP Procedure Category Date Status Time Metoprolol Tartrate PHA 11/20/24 In Process Tablet (Lopressor Ta 22:00 Amlodipine Tablet PHA 11/21/24 In Process (Norvasc Tablet) 10:00 Hydralazine Injection PHA 11/20/24 In Process (Apresoline Inject 18:30 Aspirin Tablet PHA 11/21/24 In Process 10:00 Allergies JHONY 11/20/24 In Process 18:16 Code Status CODE 11/20/24 Transmitted 18:16 Sodium Chloride Lock PHA 11/20/24 In Process (Saline Lock Ns) 22:00 Oxygen Per Hour RT 11/20/24 Transmitted 18:16 Hydrocodone-Acet PHA 11/20/24 In Process 5/325mg Tab (Carey 18:30 Ondansetron Hcl PHA 11/20/24 In Process (Zofran) 18:30 Docusate Sodium PHA 11/20/24 In Process Capsule (Colace 18:30 Complete Blood Count LAB 11/21/24 Verified 04:00 Comprehensive LAB 11/21/24 Verified Metabolic Panel 04:00 Cardiac DIET 11/20/24 Transmitted Diet-2gna,Lofat,Lochol Dinner Condition: Serious JHONY 11/20/24 In Process 18:16 Acetaminophen Tablet PHA 11/20/24 In Process (Tylenol Tablet) 18:30 Bedrest With Bathroom JHONY 11/20/24 In Process Privileg 18:16 Sequential JHONY 11/20/24 In Process Compression Device Albuterol Medneb PHA 11/20/24 In Process (Ventolin Medneb) 18:30 Ipratropium Medneb PHA 11/20/24 In Process (Atrovent Medneb) 18:30 Problem List: (1) Acute respiratory failure (2) Acute respiratory failure with hypoxia (3) Generalized weakness Date of Service: Nov 20, 2024 Billing Provider: SOILA ARIAS DNP Common Visit Codes: [id number] INP/OBS CARE (HIGH) SOILA ARIAS DNP Nov 20, 2024 19:05
[2024-11-20] MEDS ORDERED: MORPHINE SULFATE INJ 2 MG/ml SYRG IV PRN (19:15)
[2024-11-20] MEDS ORDERED: NITROGLYCERIN 0.4 MG SL TAB SL PRN (19:15)
[2024-11-20] MEDS: methylPREDNISolone SOD SUCC 125 MG/2 ML VL IV ONE (21:18)
--- NOTE | 2024-11-20 22:07 | DVHINCON2 ---
Date of service: Nov 20, 2024 Referring Physician Alin Ding NP Reason for Consultation Acute hypoxic respiratory failure, COPD exacerbation, pneumonia History of Present Illness The patient is a 69-year-old man with past medical history of CVA, hypertension, [place], and TIA who presents to ED today with complaint of shortness of breath. Patient reports experiencing difficulty breathing, increased work of breathing, associated with productive cough, nausea and vomiting, getting worse that prompted this visit. ED workup showed WBC 7.7, platelets 159, sodium 141, potassium 3.8, BUN nine, creatinine 0.87, glucose 92, troponin 16, BNP 76.21. Initial vitals showed blood pressure 148/70, heart rate 80, temperature 99.0 F, O2 saturation 98% on oxygen. Chest x-ray revealing left basilar airspace opacities. Patient was given breathing treatment, IV Solu-Medrol, and admitted for further care. Pulmonary consultation is requested for evaluation and management of acute hypoxic respiratory failure, COPD exacerbation and pneumonia. Review of Systems: 14-point review of systems negative unless otherwise noted above. Past Medical History CVA, hypertension, myocardial infarction, TIA Past Surgical History Abdomen/right leg surgery Medications: Reviewed. Allergies: Penicillins; polyester. Family History: No family history of premature CAD. No family history of lung disorders. Social History: Nonsmoker. No alcohol or illicit drug use. Family History: Patient reports no known family medical history. Allergies: Coded Allergies: Penicillins (Verified Allergy, Unknown, 10/18/24) Uncoded Allergies: polyester (Allergy, Mild, 10/18/24) "itch" Home Meds Active Scripts Doxycycline Monohydrate (Doxycycline Monohydrate) 100 Mg Tab, 100 MG PO BID for 7 Days, #14 TAB Prov:JAMIE MAK MD 11/23/24 Amlodipine Besylate (Amlodipine Besylate) 10 Mg Tab, 1 TAB PO DAILY for 30 Days, #30 TAB 5 Refills Prov:STEWART MILLER RESIDENT 10/19/24 Metoprolol Succinate (Metoprolol Succinate Er) 25 Mg Tab, 1 TAB PO DAILY for 30 Days, #30 TAB 5 Refills Prov:STEWART MILLER RESIDENT 10/19/24 Reported Medications Lisinopril (Lisinopril) 20 Mg Tab, 1 TAB PO DAILY 11/21/24 Losartan Potassium (Losartan Potassium) 50 Mg Tab, 1 TAB PO DAILY 11/21/24 Furosemide (Furosemide) 40 Mg Tab, 1 TAB PO DAILY 11/21/24 Cetirizine Hcl (Zyrtec Allergy) 10 Mg Tab, 10 MG PO, TAB 11/21/24 Apixaban Base (ELIQUIS) 2.5 Mg Tab, 1 TAB PO BID 11/21/24 Mirtazapine (Mirtazapine Oral Disintegrating Tablet) 15 Mg Tab, 1 TAB PO 11/21/24 Pregabalin (Pregabalin) 100 Mg Cap, 1 CAP PO TID 11/21/24 Cholecalciferol (D-1000) 1,000 Unit Cap, 1 CAP PO DAILY 11/21/24 Albuterol Sulfate (Albuterol Sulfate) 0.083 % Neb, 1 VIAL NEB Q4HPRN, #50 VIAL 10/18/24 Nitroglycerin (NTROSTAT SUBLINGUAL) 0.4 Mg Sl, 0.4 MG SL PRN, TAB *MAY REPEAT EVERY 5 MINUTES X 3 TOTAL IF NO RELIEF, INITIATE ANALGESIC THERAPY. NOTIFY PHYSICIAN *Do not crush. 10/18/24 Diphenhydramine Hcl (BANOPHEN) 50 Mg Cap, 50 MG OR, CAP 10/18/24 Current Medications Current Medications Medications (Trade) Dose Ordered Sig/Radha Route PRN Reason Start Time Stop Time Status Last Admin Metoprolol Tartrate (Lopressor Tablet) 25 mg BID PO 11/20/24 22:00 Amlodipine Besylate (Norvasc Tablet) 5 mg DAILY PO 11/21/24 10:00 Hydralazine HCl (Apresoline Injection) 10 mg Q6HP PRN IV SBP>150 11/20/24 18:30 Aspirin 81 mg DAILY PO 11/21/24 10:00 Sodium Chloride (Saline Lock Ns) 10 ml Q8HR IV 11/20/24 22:00 Acetaminophen/ Hydrocodone Bitart (Nadeau 5/325MG Tab) 1 tab Q4HP PRN PO MODERATE PAIN (4-6 PAIN SCALE) 11/20/24 18:30 Ondansetron HCl (Zofran) 4 mg Q4HP PRN IV NAUSEA / VOMITING 11/20/24 18:30 Docusate Sodium (Colace Capsule) 100 mg BIDPRN PRN PO FOR CONSTIPATION 11/20/24 18:30 Acetaminophen (Tylenol Tablet) 650 mg Q6HP PRN PO PAIN SCALE 1-3 OR TEMP>100.4 11/20/24 18:30 Albuterol (Ventolin Medneb) 2.5 mg Q4HPRN PRN NEB SHORTNESS OF BREATH 11/20/24 18:30 11/20/24 18:53 Ipratropium [place] (Atrovent Medneb) 0.5 mg Q4HPRN PRN NEB SHORTNESS OF BREATH 11/20/24 18:30 11/20/24 18:53 Nitroglycerin (Ntrostat Sublingual) 0.4 mg Q5MINP PRN SL FOR CHEST PAIN 11/20/24 19:15 Morphine Sulfate 2 mg Q30M PRN IV FOR CHEST PAIN 11/20/24 19:15 Methylprednisolone Sodium Succinate (Solu Medrol) 40 mg Q8HR IV 11/21/24 06:00 Famotidine (Pepcid Injection) 20 mg Q12HR IV 11/20/24 22:00 Vital Signs Vital Signs Date Time Temp Pulse Resp B/P (MAP) Pulse Ox O2 Delivery O2 Flow Rate FiO2 11/20/24 20:00 90 11/20/24 19:53 19 92 Nasal Cannula* 2 28 11/20/24 19:53 98.0 129/78 (95) 98.0 Physical Exam Gen.: Patient lying in bed in no apparent distress. On supplemental oxygen. Head: Normocephalic, atraumatic. Eyes: EOMI/PERRLA. Ears: Normal hearing. Normal anatomy. Neck/trachea: Trachea midline, supple. Nose: Normal external anatomy. Mouth: Moist mucous membranes. Chest: Decreased air entry bilaterally. No wheezing or rhonchi. Cardiovascular: Positive S1, positive S2. Regular rate and rhythm. Abdomen: Positive bowel sounds in all 4 quadrants. Soft, non-tender, non-dist ended. : Deferred. Rectal: Deferred. Skin: Warm, dry. Intact. Extremities: 2+ radial pulses bilaterally. No lower extremity edema. Neuro: Awake, alert, oriented x3. No gross motor or sensory deficits. Cranial nerves II through XII intact. Gait not assessed. Labs/Diagnostic Data Labs Test 11/20/24 16:40 11/20/24 14:10 11/20/24 13:52 Range/Units Troponin I High Sensitivity 17 </=54 ng/L Influenza Type A Antigen Negative Negative Influenza Type B Antigen Negative Negative SARS-CoV-2 Antigen (Rapid) Negative NEGATIVE White Blood Count 7.7 4.4-10.8 10^3/uL Red Blood Count 5.00 4.5-5.90 10^6/uL Hemoglobin 15.5 13.5-17.5 g/dL Hematocrit 46.5 41.0-53.0 % Mean Corpuscular Volume 93.0 80.0-100.0 fL Mean Corpuscular Hemoglobin 31.0 28.0-32.0 pg Mean Corpuscular Hemoglobin Concent 33.3 32.0-36.0 g/dL Red Cell Distribution Width 14.8 H 11.8-14.3 % Platelet Count 159 140-450 10^3/uL Mean Platelet Volume 8.3 6.9-10.8 fL Neutrophils (%) (Auto) 68.8 37.0-80.0 % Lymphocytes (%) (Auto) 15.0 10.0-50.0 % Monocytes (%) (Auto) 13.4 H 0.0-12.0 % Eosinophils (%) (Auto) 2.3 0.0-7.0 % Basophils (%) (Auto) 0.5 0.0-2.0 % Neutrophils # (Auto) 5.3 1.6-8.6 10 ^3/uL Lymphocytes # (Auto) 1.1 0.4-5.4 10 ^3/uL Monocytes # (Auto) 1.0 0-1.3 10 ^3/uL Eosinophils # (Auto) 0.2 0-0.8 10 ^3/uL Basophils # (Auto) 0 0-0.2 10 ^3/uL Nucleated Red Blood Cells 0.1 % Sodium Level 141 136-145 mmol/L Potassium Level 3.8 3.5-5.1 mmol/L Chloride Level 107 98-107 mmol/L Carbon Dioxide Level 29 20-31 mmol/L Anion Gap 5 5-15 Blood Urea Nitrogen 9 9-23 mg/dL Creatinine 0.87 0.700-1.30 mg/dL Glomerular Filtration Rate Calc 94 >90 mL/min BUN/Creatinine Ratio 10.3 10.0-20.0 Serum Glucose 92 74-106 mg/dL Lactic Acid Level 1.7 0.4-2.0 mmol/L Calcium Level 9.5 8.7-10.4 mg/dL B-Type Natriuretic Peptide 76.21 0-100 pg/mL Assessment Impression: Acute hypoxic respiratory failure AE COPD Pneumonia, likely gram negative/gram positive Atelectasis Nicotine dependence Seasonal allergies Snoring Morbid obesity Plan: Supplemental oxygen Titrate to keep O2 sats above 92%. Chest x-ray reviewed, demonstrates left basilar airspace opacities. Continue bronchodilators. Pain control Avoid oversedation Monitor renal function. Monitor electrolytes. Supplement as necessary. Monitor ins and outs. Pt smokes 0.5 PPD Smoking cessation discussed for greater than 10 minutes Risk factors for ROSE MARY; STOP-BANG score >5 Recommend sleep study as outpatient. Diet and lifestyle modifications for weight reduction Morbid obesity - complicates all care GI prophylaxis - Pepcid DVT prophylaxis. Prognosis: Poor given patient's multiple co-morbidities. Rest of plan per hospitalist and other consultants. Thank you, RONNIE Ding, for allowing me to participate in this patient's care. Further recommendations will depend on the patient's clinical course. Please do not hesitate to contact me if you have any questions or concerns. This medical document was created using an electronic medical record system with [employer] dictation system. Although these documentations are being carefully reviewed, there may still be some phonetic and typographical changes. The errors are purely typographical, due to imperfection on the software [employer], and do not reflect any compromise in the patient's medical care. Plan discussed with: Other (RONNIE Ding/) JACK CHEN MD Nov 20, 2024 22:07
[2024-11-20] MEDS: FAMOTIDINE (10MG/ML) 2ML VL IV SCH (22:27)
[2024-11-20] MEDS: METOPROLOL TARTRATE 25 MG TAB PO SCH (22:27)
[2024-11-20] MEDS: HYDROcodone-ACET 5/325MG TAB PO PRN (22:28)
[2024-11-20] MEDS: SODIUM CHLOR 0.9% PF (SALINE LOCK) 10ML VIAL/SYR IV SCH (22:28)
[2024-11-21] VITALS (20 sets, daily range): BP systolic 126–158; BP diastolic 72–98; PULSE 54–112; RESP 14–20; TEMP 97.3–98.2; O2SAT 91–100
[2024-11-21] MEDS ORDERED: CHOL100025 PO (00:04)
[2024-11-21] MEDS ORDERED: PREG100C66 PO (00:06)
[2024-11-21] MEDS ORDERED: MIRT1TAB38 PO (00:06)
[2024-11-21] MEDS ORDERED: CETI-176 PO (00:09)
[2024-11-21] MEDS ORDERED: LOSA-534 PO (00:09)
[2024-11-21] MEDS ORDERED: APIX2.5T PO (00:09)
[2024-11-21] MEDS ORDERED: FURO40TA4 PO (00:09)
[2024-11-21] MEDS ORDERED: LISI20TA56 PO (00:09)
[2024-11-21 06:00] LABS: Basophils # (auto) 0 10 ^3/uL (0-0.2); Basophils % (auto) 0.3 % (0.0-2.0); Eosinophils # (auto) 0 10 ^3/uL (0-0.8); Eosinophils % (auto) 0.1 % (0.0-7.0); Hematocrit 45.6 % (41.0-53.0); Hemoglobin 15.6 g/dL (13.5-17.5); Lymphocytes # (auto) 0.5 10 ^3/uL (0.4-5.4); Lymphocytes % (auto) 10.4 % (10.0-50.0); Mean Corpuscular Hemoglobin 31.4 pg (28.0-32.0); Mean Corpuscular Hgb Conc. 34.1 g/dL (32.0-36.0); Monocytes # (auto) 0.1 10 ^3/uL (0-1.3); Monocytes % (auto) 1.9 % (0.0-12.0); Neutrophils # (auto) 4.2 10 ^3/uL (1.6-8.6); Neutrophils % (auto) 87.3 % (37.0-80.0); Nucleated Red Blood Cells % 0.2 %; Platelet Count (auto) 155 10^3/uL (140-450); Red Blood Cells 4.96 10^6/uL (4.5-5.90); White Blood Cell 4.8 10^3/uL (4.4-10.8)
[2024-11-21 06:12] LABS: Alanine Aminotransferase 17 U/L (7-40); Albumin 4.4 g/dL (3.2-4.8); Anion Gap 8 (5-15); Aspartate Aminotransferase 15 U/L (13-40); BUN/Creatinine Ratio 13.7 (10.0-20.0); Blood Urea Nitrogen 13 mg/dL (9-23); Calcium 9.3 mg/dL (8.7-10.4); Carbon Dioxide 28 mmol/L (20-31); Chloride 104 mmol/L (98-107); Potassium 4.1 mmol/L (3.5-5.1); Sodium 140 mmol/L (136-145); Total Protein 6.6 g/dL (5.7-8.2)
[2024-11-21 06:13] LABS: Alkaline Phosphatase 126 U/L (46-116); Bilirubin, Total 0.5 mg/dL (0.2-1.0); Glucose 169 mg/dL (74-106)
[2024-11-21] MEDS: methylPREDNISolone SOD SUCC 40 MG/ML VL IV SCH (06:19)
[2024-11-21 10:07] LABS: Hepatitis B Surface Antigen Negative (Negative)
[2024-11-21] MEDS: amLODIPine BESYLATE 5 MG TAB PO SCH (10:21)
[2024-11-21] MEDS: ASPirin 81 mg TAB PO SCH (10:22)
[2024-11-21 10:29] LABS: Hepatitis C Antibody Negative (Negative)
[2024-11-21] MEDS: cefTRIAXone 1GM/50ML D5W 50 ML IV SCH (13:18)
[2024-11-21] MEDS: DOXYCYCLINE 100MG/100ML 100 ML IV SCH (14:38)
[2024-11-21] MEDS: guaiFENesin 200 MG/10 ML UD PO PRN (15:09)
--- NOTE | 2024-11-21 17:55 | DVHPN2 ---
Subjective In bed resting and feeling SOB Reviewed: H&P, Labs Changes from previous H/P or p: No Changes Eyes: No Pain, No Vision change, No Conjunctivae inflammation, No Eyelid inflammation, No Other, No Redness ENT: No Ear pain, No Ear discharge, No Nose pain, No Nose discharge, No Nose congestion, No Mouth pain, No Mouth swelling, No Throat pain, No Throat swelling, No Other Cardiovascular: No Chest Pain, No Palpitations, No Orthopnea, No Paroxysmal Noc. Dyspnea, No Edema, No Lt Headedness, No Other Respiratory: Cough; No Dry; Shortness of breath, SOB with excertion; No Wheezing, No Hemoptysis, No Pleuritic Pain, No Sputum; Other (SOB at rest) Gastrointestinal: No Nausea, No Vomiting, No Abdominal Pain, No Diarrhea, No Constipation, No Melena, No Hematochezia, No Other Genitourinary: No Dysuria, No Frequency, No Incontinence, No Hematuria, No Retention, No Other Musculoskeletal: No other, No neck pain, No shoulder pain, No arm pain, No back pain, No hand pain, No leg pain, No foot pain Skin: No Rash, No Lesions, No Jaundice, No Bruising, No Other Objective Vitals Vital Signs Date Time Temp Pulse Resp B/P (MAP) Pulse Ox O2 Delivery O2 Flow Rate FiO2 11/21/24 14:30 80 14 98 11/21/24 14:22 Room Air* 0 21 11/21/24 13:28 97.4 145/87 (106) 97.4 Intake/Output Intake and Output 11/21/24 07:00 Intake Total 250 ml Balance 250 ml Intake Oral 250 ml # Voids 2 General Appearance: Alert, Oriented X3 Lungs: Other (crepitus and wheezing) Cardiovascular: Regular rate, Normal S1, Normal S2 Medications Current Medications Medications Dose Ordered Sig/Radha Route Start Time Stop Time Status Last Admin Dose Admin Metoprolol Tartrate 25 mg BID PO 11/20/24 22:00 11/21/24 10:22 25 MG Amlodipine Besylate 5 mg DAILY PO 11/21/24 10:00 11/21/24 10:21 5 MG Hydralazine HCl 10 mg Q6HP PRN IV 11/20/24 18:30 Aspirin 81 mg DAILY PO 11/21/24 10:00 11/21/24 10:22 81 MG Sodium Chloride 10 ml Q8HR IV 11/20/24 22:00 11/21/24 14:38 10 ML Acetaminophen/ Hydrocodone Bitart 1 tab Q4HP PRN PO 11/20/24 18:30 11/21/24 06:28 1 TAB Ondansetron HCl 4 mg Q4HP PRN IV 11/20/24 18:30 Docusate Sodium 100 mg BIDPRN PRN PO 11/20/24 18:30 Acetaminophen 650 mg Q6HP PRN PO 11/20/24 18:30 Nitroglycerin 0.4 mg Q5MINP PRN SL 11/20/24 19:15 Morphine Sulfate 2 mg Q30M PRN IV 11/20/24 19:15 Methylprednisolone Sodium Succinate 40 mg Q8HR IV 11/21/24 06:00 11/21/24 15:09 40 MG Famotidine 20 mg Q12HR IV 11/20/24 22:00 11/21/24 10:20 20 MG Guaifenesin 200 mg Q4HP PRN PO 11/21/24 11:45 11/21/24 15:09 200 MG Budesonide 0.5 mg BID NEB 11/21/24 22:00 Doxycycline Hyclate 100 ml @ 50 mls/hr Q12H IV 11/21/24 11:45 12/01/24 11:44 11/21/24 14:38 50 MLS/HR Ceftriaxone Sodium 50 ml @ 100 mls/hr DAILY@09 IV 11/21/24 11:45 11/28/24 11:44 11/21/24 13:18 100 MLS/HR Albuterol 2.5 mg Q4HR NEB 11/21/24 18:00 Ipratropium [place] 0.5 mg Q4HR NEB 11/21/24 18:00 Laboratory Results Laboratory Tests 11/21/24 05:00 Chemistry Test 11/21/24 05:00 Albumin 4.4 g/dL (3.2-4.8) Calcium Level 9.3 mg/dL (8.7-10.4) Total Protein 6.6 g/dL (5.7-8.2) LFT Test 11/21/24 05:00 Alanine Aminotransferase (ALT) 17 U/L (7-40) Alkaline Phosphatase 126 U/L (46-116) H Aspartate Amino Transferase (AST) 15 U/L (13-40) Total Bilirubin 0.5 mg/dL (0.2-1.0) Microbiology Microbiology Date/Time Source Procedure Growth Status 11/21/24 00:00 Nose MRSA Screen - Final Complete 11/20/24 13:52 Blood Blood Culture - Preliminary NO GROWTH AFTER 24 HOURS OF INCUBATION. Resulted Assessment/Plan Assessment/Plan Acute respiratory failure Acute respiratory failure with hypoxia Generalized weakness Continue IV abx doxy and rocephin IV solumedrol Duo nebs Plan discussed with: Patient My Orders Orders - JAMIE MAK MD Procedure Category Date Status Time Albuterol Medneb PHA 11/21/24 In Process (Ventolin Medneb) 18:00 Ipratropium Medneb PHA 11/21/24 In Process (Atrovent Medneb) 18:00 Date of Service: Nov 21, 2024 Billing Provider: JAMIE MAK MD Common Visit Codes: [id number] INP/OBS CARE(HIGH) JAMIE MAK MD Nov 21, 2024 17:55
[2024-11-21] MEDS: IPRATROPIUM BROM 0.5 MG/2.5ML INH SOL NEB SCH (18:31)
[2024-11-21] MEDS: ALBUTEROL SULF 2.5 MG/0.5ML(0.5%) NEB SOLN NEB SCH (18:31)
--- NOTE | 2024-11-21 20:38 | DVHPN2 ---
Progress Note - Dictate Date Seen: Nov 21, 2024 Medical Necessity Reason Pt with a Central, PICC or Fol: No Subjective Patient seen and examined at bedside. Remains on supplemental oxygen Overnight events reviewed. vital signs Vital Sign Date Time Temp Pulse Resp B/P (MAP) Pulse Ox O2 Delivery O2 Flow Rate FiO2 11/21/24 20:00 19 93 Nasal Cannula* 1 24 11/21/24 18:37 100 11/21/24 17:30 97.5 126/75 (92) 97.5 Total Intake and Output 11/20/24 11/20/24 11/21/24 15:00 23:00 07:00 Intake Total 250 ml Balance 250 ml medications Current Medications Medications Dose Ordered Sig/Radha Route Start Time Stop Time Status Last Admin Dose Admin Metoprolol Tartrate 25 mg BID PO 11/20/24 22:00 11/21/24 10:22 25 MG Amlodipine Besylate 5 mg DAILY PO 11/21/24 10:00 11/21/24 10:21 5 MG Hydralazine HCl 10 mg Q6HP PRN IV 11/20/24 18:30 Aspirin 81 mg DAILY PO 11/21/24 10:00 11/21/24 10:22 81 MG Sodium Chloride 10 ml Q8HR IV 11/20/24 22:00 11/21/24 14:38 10 ML Acetaminophen/ Hydrocodone Bitart 1 tab Q4HP PRN PO 11/20/24 18:30 11/21/24 06:28 1 TAB Ondansetron HCl 4 mg Q4HP PRN IV 11/20/24 18:30 Docusate Sodium 100 mg BIDPRN PRN PO 11/20/24 18:30 Acetaminophen 650 mg Q6HP PRN PO 11/20/24 18:30 Nitroglycerin 0.4 mg Q5MINP PRN SL 11/20/24 19:15 Morphine Sulfate 2 mg Q30M PRN IV 11/20/24 19:15 Methylprednisolone Sodium Succinate 40 mg Q8HR IV 11/21/24 06:00 11/21/24 15:09 40 MG Famotidine 20 mg Q12HR IV 11/20/24 22:00 11/21/24 10:20 20 MG Guaifenesin 200 mg Q4HP PRN PO 11/21/24 11:45 11/21/24 15:09 200 MG Budesonide 0.5 mg BID NEB 11/21/24 22:00 Doxycycline Hyclate 100 ml @ 50 mls/hr Q12H IV 11/21/24 11:45 12/01/24 11:44 11/21/24 14:38 50 MLS/HR Ceftriaxone Sodium 50 ml @ 100 mls/hr DAILY@09 IV 11/21/24 11:45 11/28/24 11:44 11/21/24 13:18 100 MLS/HR Albuterol 2.5 mg Q4HR NEB 11/21/24 18:00 11/21/24 18:31 2.5 MG Ipratropium [place] 0.5 mg Q4HR NEB 11/21/24 18:00 11/21/24 18:31 0.5 MG objective Gen.: Patient lying in bed in no apparent distress. On supplemental oxygen. Head: Normocephalic, atraumatic. Eyes: EOMI/PERRLA. Ears: Normal hearing. Normal anatomy. Neck/trachea: Trachea midline, supple. Nose: Normal external anatomy. Mouth: Moist mucous membranes. Chest: Decreased air entry bilaterally. No wheezing or rhonchi. Cardiovascular: Positive S1, positive S2. Regular rate and rhythm. Abdomen: Positive bowel sounds in all 4 quadrants. Soft, non-tender, non- distended. : Deferred. Rectal: Deferred. Skin: Warm, dry. Intact. Extremities: 2+ radial pulses bilaterally. No lower extremity edema. Neuro: Awake, alert, oriented x3. No gross motor or sensory deficits. Cranial nerves II through XII intact. Gait not assessed. laboratory and microbiology Laboratory Tests 11/21/24 05:00 Test 11/21/24 05:00 Range/Units Serum Glucose 169 H 74-106 mg/dL Assessment/Plan Impression: Acute hypoxic respiratory failure AE COPD Dependence on supplemental oxygen Pneumonia, likely gram negative/gram positive Atelectasis Nicotine dependence Seasonal allergies Snoring Morbid obesity Events: Remains on supplemental oxygen, 3 LPM NC Taper O2 as tolerated CXR reviewed; notable for RLL opacities and hyperinflation. Continue bronchodilators Budesonide q.12 hours IV steroids Antitussive PRN Continue antibiotics Incentive spirometry Recommend pulmonary function tests as outpatient. Follow up in 2 weeks in outpatient pulmonary clinic Labs and imaging reviewed. Rest of plan as noted below. Plan: Supplemental oxygen Titrate to keep O2 sats above 92%. Continue bronchodilators. IV steroids Pain control Avoid oversedation Monitor renal function. Monitor electrolytes. Supplement as necessary. Monitor ins and outs. Pt smokes 0.5 PPD Smoking cessation discussed for greater than 10 minutes Risk factors for ROSE MARY; STOP-BANG score >5 Recommend sleep study as outpatient. Diet and lifestyle modifications for weight reduction Morbid obesity - complicates all care GI prophylaxis - Pepcid DVT prophylaxis. Prognosis: Guarded given patient's multiple co-morbidities. Rest of plan per hospitalist and other consultants. Thank you, RONNIE Ding, for allowing me to participate in this patient's care. Further recommendations will depend on the patient's clinical course. Please do not hesitate to contact me if you have any questions or concerns. This medical document was created using an electronic medical record system with [employer] dictation system. Although these documentations are being carefully reviewed, there may still be some phonetic and typographical changes. The errors are purely typographical, due to imperfection on the software program, and do not reflect any compromise in the patient's medical care. Plan discussed with: Patient, Other (RN Leo) JACK CHEN MD Nov 21, 2024 20:38
[2024-11-21] MEDS: BUDESONIDE (INHALATION) 0.5 MG/2 ML NEB NEB SCH (22:07)
[2024-11-22] VITALS (20 sets, daily range): BP systolic 108–143; BP diastolic 65–87; PULSE 48–96; RESP 17–20; TEMP 97.4–98.3; O2SAT 89–100
--- NOTE | 2024-11-22 16:06 | DVHPN2 ---
Subjective In bed resting and feeling SOB Reviewed: H&P, Labs Changes from previous H/P or p: No Changes Eyes: No Pain, No Vision change, No Conjunctivae inflammation, No Eyelid inflammation, No Other, No Redness ENT: No Ear pain, No Ear discharge, No Nose pain, No Nose discharge, No Nose congestion, No Mouth pain, No Mouth swelling, No Throat pain, No Throat swelling, No Other Cardiovascular: No Chest Pain, No Palpitations, No Orthopnea, No Paroxysmal Noc. Dyspnea, No Edema, No Lt Headedness, No Other Respiratory: Cough; No Dry; Shortness of breath, SOB with excertion; No Wheezing, No Hemoptysis, No Pleuritic Pain, No Sputum; Other (SOB at rest) Gastrointestinal: No Nausea, No Vomiting, No Abdominal Pain, No Diarrhea, No Constipation, No Melena, No Hematochezia, No Other Genitourinary: No Dysuria, No Frequency, No Incontinence, No Hematuria, No Retention, No Other Musculoskeletal: No other, No neck pain, No shoulder pain, No arm pain, No back pain, No hand pain, No leg pain, No foot pain Skin: No Rash, No Lesions, No Jaundice, No Bruising, No Other Objective Vitals Vital Signs Date Time Temp Pulse Resp B/P (MAP) Pulse Ox O2 Delivery O2 Flow Rate FiO2 11/22/24 15:05 72 18 97 11/22/24 14:55 Nasal Cannula* 1 24 11/22/24 12:46 98.1 110/65 (80) 98.1 Intake/Output Intake and Output 11/22/24 07:00 Intake Total 2290 ml Output Total 800 ml Balance 1490 ml Intake Oral 2040 ml IV Total 250 ml Output Urine Total 800 ml # Voids 2 # Bowel Movements 2 General Appearance: Alert, Oriented X3 Lungs: Other (crepitus and wheezing) Cardiovascular: Regular rate, Normal S1, Normal S2 Medications Current Medications Medications Dose Ordered Sig/Radha Route Start Time Stop Time Status Last Admin Dose Admin Metoprolol Tartrate 25 mg BID PO 11/20/24 22:00 11/22/24 09:37 25 MG Amlodipine Besylate 5 mg DAILY PO 11/21/24 10:00 11/22/24 09:38 5 MG Hydralazine HCl 10 mg Q6HP PRN IV 11/20/24 18:30 Aspirin 81 mg DAILY PO 11/21/24 10:00 11/22/24 09:38 81 MG Sodium Chloride 10 ml Q8HR IV 11/20/24 22:00 11/22/24 13:43 10 ML Acetaminophen/ Hydrocodone Bitart 1 tab Q4HP PRN PO 11/20/24 18:30 11/21/24 21:20 1 TAB Ondansetron HCl 4 mg Q4HP PRN IV 11/20/24 18:30 Docusate Sodium 100 mg BIDPRN PRN PO 11/20/24 18:30 Acetaminophen 650 mg Q6HP PRN PO 11/20/24 18:30 Nitroglycerin 0.4 mg Q5MINP PRN SL 11/20/24 19:15 Morphine Sulfate 2 mg Q30M PRN IV 11/20/24 19:15 Methylprednisolone Sodium Succinate 40 mg Q8HR IV 11/21/24 06:00 11/22/24 13:43 40 MG Famotidine 20 mg Q12HR IV 11/20/24 22:00 11/22/24 09:38 20 MG Guaifenesin 200 mg Q4HP PRN PO 11/21/24 11:45 11/22/24 04:34 200 MG Budesonide 0.5 mg BID NEB 11/21/24 22:00 11/22/24 10:23 0.5 MG Doxycycline Hyclate 100 ml @ 50 mls/hr Q12H IV 11/21/24 11:45 12/01/24 11:44 11/22/24 12:02 50 MLS/HR Ceftriaxone Sodium 50 ml @ 100 mls/hr DAILY@09 IV 11/21/24 11:45 11/28/24 11:44 11/22/24 09:37 100 MLS/HR Albuterol 2.5 mg Q4HR NEB 11/21/24 18:00 11/22/24 14:55 2.5 MG Ipratropium [place] 0.5 mg Q4HR NEB 11/21/24 18:00 11/22/24 14:54 0.5 MG Laboratory Results Laboratory Tests 11/21/24 05:00 Microbiology Microbiology Date/Time Source Procedure Growth Status 11/21/24 00:00 Nose MRSA Screen - Final Complete 11/20/24 13:52 Blood Blood Culture - Preliminary NO GROWTH AFTER 48 HOURS OF INCUBATION. Resulted Assessment/Plan Assessment/Plan Acute respiratory failure Acute respiratory failure with hypoxia Generalized weakness Continue IV abx doxy and rocephin IV solumedrol Duo nebs Plan discussed with: Patient Date of Service: Nov 22, 2024 Billing Provider: JAMIE MAK MD Common Visit Codes: [id number] INP/OBS CARE(HIGH) JAMIE MAK MD Nov 22, 2024 16:06
--- NOTE | 2024-11-22 23:25 | DVHPN2 ---
Progress Note - Dictate Date Seen: Nov 22, 2024 Medical Necessity Reason Pt with a Central, PICC or Fol: No Subjective Patient seen and examined at bedside. Remains on supplemental oxygen Overnight events reviewed. vital signs Vital Sign Date Time Temp Pulse Resp B/P (MAP) Pulse Ox O2 Delivery O2 Flow Rate FiO2 11/22/24 22:24 85 18 98 11/22/24 22:14 Nasal Cannula* 2 28 11/22/24 21:28 143/87 11/22/24 21:00 98.3 98.3 Total Intake and Output 11/21/24 11/21/24 11/22/24 15:00 23:00 07:00 Intake Total 50 ml 1100 ml 1140 ml Output Total 800 ml Balance 50 ml 300 ml 1140 ml medications Current Medications Medications Dose Ordered Sig/Radha Route Start Time Stop Time Status Last Admin Dose Admin Metoprolol Tartrate 25 mg BID PO 11/20/24 22:00 11/22/24 21:28 25 MG Amlodipine Besylate 5 mg DAILY PO 11/21/24 10:00 11/22/24 09:38 5 MG Hydralazine HCl 10 mg Q6HP PRN IV 11/20/24 18:30 Aspirin 81 mg DAILY PO 11/21/24 10:00 11/22/24 09:38 81 MG Sodium Chloride 10 ml Q8HR IV 11/20/24 22:00 11/22/24 21:35 10 ML Acetaminophen/ Hydrocodone Bitart 1 tab Q4HP PRN PO 11/20/24 18:30 11/21/24 21:20 1 TAB Ondansetron HCl 4 mg Q4HP PRN IV 11/20/24 18:30 Docusate Sodium 100 mg BIDPRN PRN PO 11/20/24 18:30 Acetaminophen 650 mg Q6HP PRN PO 11/20/24 18:30 Nitroglycerin 0.4 mg Q5MINP PRN SL 11/20/24 19:15 Morphine Sulfate 2 mg Q30M PRN IV 11/20/24 19:15 Methylprednisolone Sodium Succinate 40 mg Q8HR IV 11/21/24 06:00 11/22/24 21:29 40 MG Famotidine 20 mg Q12HR IV 11/20/24 22:00 11/22/24 21:29 20 MG Guaifenesin 200 mg Q4HP PRN PO 11/21/24 11:45 11/22/24 04:34 200 MG Budesonide 0.5 mg BID NEB 11/21/24 22:00 11/22/24 22:14 0.5 MG Doxycycline Hyclate 100 ml @ 50 mls/hr Q12H IV 11/21/24 11:45 12/01/24 11:44 11/22/24 23:10 50 MLS/HR Ceftriaxone Sodium 50 ml @ 100 mls/hr DAILY@09 IV 11/21/24 11:45 11/28/24 11:44 11/22/24 09:37 100 MLS/HR Albuterol 2.5 mg Q4HR NEB 11/21/24 18:00 11/22/24 22:14 2.5 MG Ipratropium [place] 0.5 mg Q4HR NEB 11/21/24 18:00 11/22/24 22:14 0.5 MG objective Gen.: Patient lying in bed in no apparent distress. On supplemental oxygen. Head: Normocephalic, atraumatic. Eyes: EOMI/PERRLA. Ears: Normal hearing. Normal anatomy. Neck/trachea: Trachea midline, supple. Nose: Normal external anatomy. Mouth: Moist mucous membranes. Chest: Decreased air entry bilaterally. Wheezing, improved. No rhonchi. Cardiovascular: Positive S1, positive S2. Regular rate and rhythm. Abdomen: Positive bowel sounds in all 4 quadrants. Soft, non-tender, non- distended. : Deferred. Rectal: Deferred. Skin: Warm, dry. Intact. Extremities: 2+ radial pulses bilaterally. No lower extremity edema. Neuro: Awake, alert, oriented x3. No gross motor or sensory deficits. Cranial nerves II through XII intact. Gait not assessed. laboratory and microbiology Laboratory Tests 11/21/24 05:00 Test 11/21/24 05:00 Range/Units Serum Glucose 169 H 74-106 mg/dL Assessment/Plan Impression: Acute hypoxic respiratory failure AE COPD Dependence on supplemental oxygen Pneumonia, likely gram negative/gram positive Atelectasis Nicotine dependence Seasonal allergies Snoring Morbid obesity Events: Remains on supplemental oxygen Currently on 1 LPM NC Taper O2 as tolerated Improving O2 requirements Wheezing improving. Continue bronchodilators Budesonide q.12 hours IV steroids Antitussive PRN Continue antibiotics Incentive spirometry Recommend pulmonary function tests as outpatient. Follow up in 2 weeks in outpatient pulmonary clinic CXR was notable for RLL opacities and hyperinflation. Labs and imaging reviewed. Rest of plan as noted below. Plan: Supplemental oxygen Titrate to keep O2 sats above 92%. Continue bronchodilators. IV steroids Pain control Avoid oversedation Monitor renal function. Monitor electrolytes. Supplement as necessary. Monitor ins and outs. Pt smokes 0.5 PPD Smoking cessation discussed for greater than 10 minutes Risk factors for ROSE MARY; STOP-BANG score >5 Recommend sleep study as outpatient. Diet and lifestyle modifications for weight reduction Morbid obesity - complicates all care GI prophylaxis - Pepcid DVT prophylaxis. Prognosis: Guarded given patient's multiple co-morbidities. Rest of plan per hospitalist and other consultants. Thank you, RONNIE Ding, for allowing me to participate in this patient's care. Further recommendations will depend on the patient's clinical course. Please do not hesitate to contact me if you have any questions or concerns. This medical document was created using an electronic medical record system with [employer] dictation system. Although these documentations are being carefully reviewed, there may still be some phonetic and typographical changes. The errors are purely typographical, due to imperfection on the software program, and do not reflect any compromise in the patient's medical care. Plan discussed with: Patient, Other (BIJAN Bailey) JACK CHEN MD Nov 22, 2024 23:24
[2024-11-23] VITALS (13 sets, daily range): BP systolic 126–154; BP diastolic 65–83; PULSE 56–96; RESP 16–22; TEMP 97.5–97.9; O2SAT 92–100
[2024-11-23] MEDS ORDERED: DOXY-111 PO (13:08)
--- NOTE | 2024-11-23 23:18 | DVHPN2 ---
Progress Note - Dictate Date Seen: Nov 23, 2024 Medical Necessity Reason Pt with a Central, PICC or Fol: No Subjective Patient seen and examined at bedside. Breathing comfortably on room air Overnight events reviewed. vital signs Vital Sign Date Time Temp Pulse Resp B/P (MAP) Pulse Ox O2 Delivery O2 Flow Rate FiO2 11/23/24 14:24 97.9 88 20 92 11/23/24 13:56 Room Air* 0 21 11/23/24 10:32 126/70 Total Intake and Output 11/22/24 11/22/24 11/23/24 15:00 23:00 07:00 Intake Total 150 ml 1320 ml 850 ml Output Total 250 ml Balance 150 ml 1320 ml 600 ml objective Gen.: Patient lying in bed in no apparent distress. On room air. Head: Normocephalic, atraumatic. Eyes: EOMI/PERRLA. Ears: Normal hearing. Normal anatomy. Neck/trachea: Trachea midline, supple. Nose: Normal external anatomy. Mouth: Moist mucous membranes. Chest: Decreased air entry bilaterally. Wheezing, improved. No rhonchi. Cardiovascular: Positive S1, positive S2. Regular rate and rhythm. Abdomen: Positive bowel sounds in all 4 quadrants. Soft, non-tender, non- distended. : Deferred. Rectal: Deferred. Skin: Warm, dry. Intact. Extremities: 2+ radial pulses bilaterally. No lower extremity edema. Neuro: Awake, alert, oriented x3. No gross motor or sensory deficits. Cranial nerves II through XII intact. Gait not assessed. laboratory and microbiology Laboratory Tests 11/21/24 05:00 Test 11/21/24 05:00 Range/Units Serum Glucose 169 H 74-106 mg/dL Assessment/Plan Impression: Acute hypoxic respiratory failure AE COPD Pneumonia, likely gram negative/gram positive Atelectasis Nicotine dependence Seasonal allergies Snoring Morbid obesity Events: Improved O2 requirements Currently on room air Supplemental oxygen PRN Wheezing improved. Continue bronchodilators Budesonide q.12 hours Antitussive PRN Complete antibiotics Complete steroid course Incentive spirometry Patient is stable for discharge from the pulmonary standpoint. Follow up in 1-2 weeks in outpatient pulmonary clinic Recommend pulmonary function tests as outpatient. Labs and imaging reviewed. Rest of plan as noted below. Plan: Supplemental oxygen Titrate to keep O2 sats above 92%. Continue bronchodilators. IV steroids Monitor renal function. Monitor electrolytes. Supplement as necessary. Monitor ins and outs. Pt smokes 0.5 PPD Smoking cessation discussed for greater than 10 minutes Risk factors for ROSE MARY; STOP-BANG score >5 Recommend sleep study as outpatient. Diet and lifestyle modifications for weight reduction Morbid obesity - complicates all care GI prophylaxis - Pepcid DVT prophylaxis. Prognosis: Guarded given patient's multiple co-morbidities. Rest of plan per hospitalist and other consultants. Thank you, RONNIE Ding, for allowing me to participate in this patient's care. Further recommendations will depend on the patient's clinical course. Please do not hesitate to contact me if you have any questions or concerns. This medical document was created using an electronic medical record system with [employer] computerized dictation system. Although these documentations are being carefully reviewed, there may still be some phonetic and typographical changes. The errors are purely typographical, due to imperfection on the software program, and do not reflect any compromise in the patient's medical care. Plan discussed with: Patient, Other (RN) JACK CHEN MD Nov 23, 2024 23:18
--- NOTE | 2024-11-29 20:30 | DVHDS2 ---
Discharge Summary Date of Admission Nov 20, 2024 at 19:04 Date of Discharge: Nov 23, 2024 Labs/Diagnostic Data: Laboratory Results Test 11/21/24 05:00 11/20/24 16:40 11/20/24 14:10 11/20/24 13:52 White Blood Count 4.8 10^3/uL (4.4-10.8) Red Blood Count 4.96 10^6/uL (4.5-5.90) Hemoglobin 15.6 g/dL (13.5-17.5) Hematocrit 45.6 % (41.0-53.0) Mean Corpuscular Volume 92.0 fL (80.0-100.0) Mean Corpuscular Hemoglobin 31.4 pg (28.0-32.0) Mean Corpuscular Hemoglobin Concent 34.1 g/dL (32.0-36.0) Red Cell Distribution Width 15.0 % (11.8-14.3) Platelet Count 155 10^3/uL (140-450) Mean Platelet Volume 8.5 fL (6.9-10.8) Neutrophils (%) (Auto) 87.3 % (37.0-80.0) Lymphocytes (%) (Auto) 10.4 % (10.0-50.0) Monocytes (%) (Auto) 1.9 % (0.0-12.0) Eosinophils (%) (Auto) 0.1 % (0.0-7.0) Basophils (%) (Auto) 0.3 % (0.0-2.0) Neutrophils # (Auto) 4.2 10 ^3/uL (1.6-8.6) Lymphocytes # (Auto) 0.5 10 ^3/uL (0.4-5.4) Monocytes # (Auto) 0.1 10 ^3/uL (0-1.3) Eosinophils # (Auto) 0 10 ^3/uL (0-0.8) Basophils # (Auto) 0 10 ^3/uL (0-0.2) Nucleated Red Blood Cells 0.2 % Sodium Level 140 mmol/L (136-145) Potassium Level 4.1 mmol/L (3.5-5.1) Chloride Level 104 mmol/L (98-107) Carbon Dioxide Level 28 mmol/L (20-31) Anion Gap 8 (5-15) Blood Urea Nitrogen 13 mg/dL (9-23) Creatinine 0.95 mg/dL (0.700-1.30) Glomerular Filtration Rate Calc 87 mL/min (>90) BUN/Creatinine Ratio 13.7 (10.0-20.0) Serum Glucose 169 mg/dL (74-106) Calcium Level 9.3 mg/dL (8.7-10.4) Total Bilirubin 0.5 mg/dL (0.2-1.0) Aspartate Amino Transferase (AST) 15 U/L (13-40) Alanine Aminotransferase (ALT) 17 U/L (7-40) Alkaline Phosphatase 126 U/L (46-116) Total Protein 6.6 g/dL (5.7-8.2) Albumin 4.4 g/dL (3.2-4.8) Hepatitis B Surface Antigen Negative (Negative) Hepatitis C Antibody Negative (Negative) Troponin I High Sensitivity 17 ng/L (</=54) Influenza Type A Antigen Negative (Negative) Influenza Type B Antigen Negative (Negative) SARS-CoV-2 Antigen (Rapid) Negative (NEGATIVE) Lactic Acid Level 1.7 mmol/L (0.4-2.0) B-Type Natriuretic Peptide 76.21 pg/mL (0-100) Other Laboratory Tests 11/21/24 05:00 Brief Hx & Hospital Course: 69 year old male with past medical history CVA, hypertension, GA, and TIA who presented to [facility] ED with complaint of shortness of breaths. Patient reports experiencing difficulty breathing, increased work of breathing, associated with productive cough, nausea, vomiting, getting worse that prompted this visit. Patient was seen and evaluated in the ED, laboratory data shows WBC 7.7, platelets 159, sodium 141, potassium 3.8, BUN nine, creatinine 0.87, glucose 92, troponin 16, BNP 76.21, blood pressure 148/70, heart rate 80, temperature 99.0 F, O2 saturation 98% on oxygen. Chest x-ray revealing left basilar airspace opacities. Patient was given breathing treatment, IV Solu- Medrol, please see medication orders section in the computer. On my assessment, patient denied chest pain, no headache, no dizziness, currently on oxygen, no nausea, no vomiting, no fever, no chills. Patient was admitted for further evaluation and medical management. Treated for COPD exacerbation on IV steroids, duonebs and IV abx, felt better with less SOB, and then discharged Condition at Discharge: Good Final Diagnosis/Problems List COPD exacerbation hypoxic respiratory failure pneumonia due to gram negative rods Discharge Disposition: Home Discharge Instruct/Medications Diet: Regular Activity: No Restrictions, As Tolerated Follow Up/Referral: PCP in 7 days Medications: doxycycline Discharge Statement: "Patient was advised to return to the ER or call 911 if any headaches, dizziness, shortness of breath, chest pain, abdominal pain, bleeding, fevers, or worsening of medical condition. Patient was counseled about treatment plan, medications, possible side effects, patientverbalized understanding. All questions were answered to the best of my ability. This discharge took greater then 30 minutes in planning, reviewing documentation, counseling the patient, and discussing with other team members." ASSESSMENT ASSESSMENT Assessment COPD exacerbation hypoxic respiratory failure pneumonia due to gram negative rods Date of Service: Nov 23, 2024 Billing Provider: JAMIE MAK MD Common Visit Codes: [id number] DISCH DAY >30min JAMIE MAK MD Nov 29, 2024 20:30
== END 2024-11-23 15:50 | disposition home or self-care (01) | DRG 177 ==
LOC: EDBD 13:34 → EDUNIT# 13:34 → ER 13:41 → OVERFLOW 19:04 → TELE-WESTW 22:30
PROVIDERS: ADMIT Hospitalist; ATTEND Hospitalist
DX: J15.69 Pneumonia due to other Gram-negative bacteria (principal); J96.01 Acute respiratory failure with hypoxia; J44.1 Chronic obstructive pulmonary disease with (acute) exacerbation; J44.0 Chronic obstructive pulmonary disease with (acute) lower respiratory infection; I50.32 Chronic diastolic (congestive) heart failure; J15.9 Unspecified bacterial pneumonia; E66.01 Morbid (severe) obesity due to excess calories; F17.200 Nicotine dependence, unspecified, uncomplicated; J30.2 Other seasonal allergic rhinitis; I11.0 Hypertensive heart disease with heart failure; Z86.73 Personal history of transient ischemic attack (TIA), and cerebral infarction without residual deficits; Z88.0 Allergy status to penicillin; Z79.899 Other long term (current) drug therapy; I25.2 Old myocardial infarction; Z99.81 Dependence on supplemental oxygen; Z68.39 Body mass index [BMI] 39.0-39.9, adult
CPT/HCPCS: 36415; 71045; 80048; 80053; 83605; 83880; 84484; 85025; 86803; 87040; 87081; 87340; 87426; 87804; 93005; 94640; 99291; G0378; J3490

== ENCOUNTER 2024-12-24 11:51 | Emergency (ER) | payer OTHER, MEDICAID ==
[~2024-12-24] VITALS: Ht 188 cm; Wt 111.5 kg
[~2024-12-24 11:51] MED LIST changes: +APIX2.5T PO; +CETI-176 PO; +CHOL100025 PO; +DOXY-111 PO; +FURO40TA4 PO; +LISI20TA56 PO; +LOSA-534 PO; +MIRT1TAB38 PO; +PREG100C66 PO
[2024-12-24 12:10] VITALS: TEMP 98.3
--- NOTE | 2024-12-24 13:32 | DVH ---
EXAM: XY R FOREARM XRAY HISTORY: fall. R/o fracture COMPARISON: None TECHNIQUE: AP and lateral views of the right forearm were performed. FINDINGS/IMPRESSION: 1. Mildly displaced fracture of the distal radius involving the radial styloid, with intra-articular extension. 2. No fractures are identified about the right ulna or proximal to mid portions of the right radius. 3. Triceps insertion enthesophyte and osteoarthritis of the radial aspect of the wrist incidentally n oted.
--- NOTE | 2024-12-24 13:35 | DVH ---
CLINICAL INDICATION: fall. R/o fracture TECHNIQUE: XY R HAND 3 VIEW XRAY Comparison: None FINDINGS/IMPRESSION: 1. No acute fracture or dislocation of the right hand. 2. Mildly displaced radial styloid fracture with intra-articular extension. 3. 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
--- NOTE | 2024-12-24 13:49 | ED.PDOC ---
History of Present Illness HPI Comments 69 year old male with a Hx of HTN, Asthma , NV, CVA, and a Full Right Knee Replacement, presents to the ED for the c/c of a Mechanical Fall Injury. Pt states that he experienced a Mechanical fall last pm on his back patio after his wheelchair fell from under him. Pt states that a similar incident happened ap prox 3x weeks ago. Pt also notes on having Right wrist pain at this time that is rated as moderate. Also notes of Right knee pain. No other associated Modifiers, or symptoms at this time. Chief Complaint: Fall Injury Time Seen by MD: 13:37 Primary Care Provider: CHEN Reviewed Notes: Nurses Notes, Medications, Allergies Allergies: Coded Allergies: Penicillins (Verified Allergy, Unknown, 10/18/24) Uncoded Allergies: polyester (Allergy, Mild, 10/18/24) "itch" Home Meds Active Scripts Ibuprofen Micronized (Ibuprofen) 600 Mg Tab, 600 MG PO TIDP PRN for 7 Days, #21 TAB 0 Refills Prov:BHAVIN BAY NP 12/24/24 Doxycycline Monohydrate (Doxycycline Monohydrate) 100 Mg Tab, 100 MG PO BID for 7 Days, #14 TAB Prov:JAMIE MAK MD 11/23/24 Amlodipine Besylate (Amlodipine Besylate) 10 Mg Tab, 1 TAB PO DAILY for 30 Days, #30 TAB 5 Refills Prov:STEWART MILLER RESIDENT 10/19/24 Metoprolol Succinate (Metoprolol Succinate Er) 25 Mg Tab, 1 TAB PO DAILY for 30 Days, #30 TAB 5 Refills Prov:STEWART MILLER RESIDENT 10/19/24 Reported Medications Lisinopril (Lisinopril) 20 Mg Tab, 1 TAB PO DAILY 11/21/24 Losartan Potassium (Losartan Potassium) 50 Mg Tab, 1 TAB PO DAILY 11/21/24 Furosemide (Furosemide) 40 Mg Tab, 1 TAB PO DAILY 11/21/24 Cetirizine Hcl (Zyrtec Allergy) 10 Mg Tab, 10 MG PO, TAB 11/21/24 Apixaban Base (ELIQUIS) 2.5 Mg Tab, 1 TAB PO BID 11/21/24 Mirtazapine (Mirtazapine Oral Disintegrating Tablet) 15 Mg Tab, 1 TAB PO 11/21/24 Pregabalin (Pregabalin) 100 Mg Cap, 1 CAP PO TID 11/21/24 Cholecalciferol (D-1000) 1,000 Unit Cap, 1 CAP PO DAILY 11/21/24 Albuterol Sulfate (Albuterol Sulfate) 0.083 % Neb, 1 VIAL NEB Q4HPRN, #50 VIAL 10/18/24 Nitroglycerin (NTROSTAT SUBLINGUAL) 0.4 Mg Sl, 0.4 MG SL PRN, TAB *MAY REPEAT EVERY 5 MINUTES X 3 TOTAL IF NO RELIEF, INITIATE ANALGESIC THERAPY. NOTIFY PHYSICIAN *Do not crush. 10/18/24 Diphenhydramine Hcl (BANOPHEN) 50 Mg Cap, 50 MG OR, CAP 10/18/24 Information Source: Patient Mode of Arrival: Wheelchair Severity: Moderate Timing: Hours Duration: Since onset, Hours Prehospital treatment: None Past Medical History PAST MEDICAL HISTORY: CVA, HTN, NV, TIA Family History Family History: Reviewed,noncontributory to illness Social History Smoker: Non-Smoker Alcohol: Denies ETOH Use Drugs: Denies Drug Use Lives In: Home Constitutional: denies: chills, diaphoresis, fatigue, fever, malaise, sweats, weakness, others EENTM: denies: blurred vision, double vision, ear bleeding, ear discharge, ear drainage, ear pain, ear ringing, eye pain, eye redness, hearing loss, mouth pain, mouth swelling, nasal discharge, nose bleeding, nose congestion, nose pain, photophobia, tearing, throat pain, throat swelling, voice changes, others Respiratory: denies: cough, hemoptysis, orthopnea, SOB at rest, shortness of breath, SOB with excertion, stridor, wheezing, others Cardiovascular: denies: chest pain, dizzy spells, diaphoresis, Dyspnea on exertion, edema, irregular heart beat, left arm pain, lightheadedness, palpitations, PND, syncope, others Gastrointestinal: denies: abdomen distended, abdominal pain, blood streaked bowels, constipated, diarrhea, dysphagia, difficulty swallowing, hematemesis, melena, nausea, poor appetite, poor fluid intake, rectal bleeding, rectal pain, vomiting, others Genitourinary: denies: burning, dysuria, flank pain, frequency, hematuria, inco ntinence, penile discharge, penile sore, pain, testicle pain, testicle swelling, urgency, others Neurological: denies: dizziness, fainting, headache, left sided numbness, left sided weakness, numbness, paresthesia, pre-existing deficit, right sided numbness, right sided weakness, seizure, speech problems, tingling, tremors, weakness, others Musculoskeletal: reports: others (Wrist pain); denies: back pain, gout, joint pain, joint swelling, muscle pain, muscle stiffness, neck pain Integumetry: denies: bruises, change in color, change in hair/nails, dryness, laceration, lesions, lumps, rash, wounds, others Allergic/Immunocompromised: denies: Difficulty Healing, Frequent Infections, Hives, Itching, others Hematologic/Lymphatic: denies: anemia, blood clots, easy bleeding, easy bruising, swollen glands, others Endocrine: denies: excessive hunger, excessive sweating, excessive thirst, excessive urination, flushing, intolerance to cold, intolerance to heat, unexplained weight gain, unexplained weight loss, others Psychiatric: denies: anxiety, bipolar disorder, depression, hopeless, panic disorder, schizophrenia, sleepless, suicidal, others All Other Systems: Reviewed and Negative Physical Exam General Appearance: Mild Distress, Normal, Obese HEENT: Normal ENT Inspection, Pharynx Normal, TMs Normal Neck: Full Range of Motion, Non-Tender, Normal, Normal Inspection Respiratory: Chest Non-Tender, Lungs Clear, No Accessory Muscle Use, No Respiratory Distress, Normal Breath Sounds Cardiovascular: No Murmur, No Gallop, Regular Rate/Rhythm Breast Exam: Deferred Gastrointestinal: No Organomegaly, Non Tender, No Pulsatile Mass, Normal Bowel Sounds, Soft Genitalia: Deferred Pelvic: Deferred Rectal: Deferred Extremities: No calf tenderness, Normal capillary refill, Normal inspection, Normal range of motion, Non-tender, No pedal edema Musculoskeletal : Location: Right Extremity Location: Forearm (no ecimosis, no deformity, localized ttp to the distal wrist, pain w/ flexion and extension, radial pulse 2+, capillary refill less than 3 seconds, Nurovascular sensation intact) Apperance: Normal Neurologic: Alert, No Motor Deficits, Normal Affect, Normal Mood, No Sensory Deficits Cerebellar Function: Normal Reflexes: Normal Skin: Dry, Normal Color, Warm Lymphatic: No Adenopathy Was a procedure done? Was a procedure done?: No Differential Dx Considerations may include: fracture, sprain, dislocation X-Ray, Labs, Meds, VS Vital Signs Date Time Temp Pulse Resp B/P (MAP) Pulse Ox O2 Delivery O2 Flow Rate FiO2 12/24/24 17:08 77 18 144/80 (101) 96 12/24/24 17:08 77 18 96 Room Air 12/24/24 12:10 98.3 81 16 114/67 (83) 94 98.3 Lab Test 12/24/24 14:17 12/24/24 13:22 Range/Units Urine Color Yellow Yellow Urine Clarity Clear Clear Urine pH 5.5 5.0-9.0 Urine Specific [place] 1.024 1.001-1.035 Urine Protein Negative Negative Urine Ketones Negative Negative Urine Blood Negative Negative /uL Urine Nitrite Negative Negative Urine Bilirubin Negative Negative Urine Urobilinogen Normal Negative mg/dL Urine Leukocyte Esterase Negative Negative /uL Urine RBC <1 0 - 3 /hpf Urine Microscopic WBC 1 0-3 /HPF Urine Squamous Epithelial Cells Few <5 /hpf Urine Bacteria None seen None Seen /hpf Urine Mucus Few None Seen Urine Glucose Normal Normal mg/dL White Blood Count 9.9 4.4-10.8 10^3/uL Red Blood Count 5.40 4.5-5.90 10^6/uL Hemoglobin 16.5 13.5-17.5 g/dL Hematocrit 49.3 41.0-53.0 % Mean Corpuscular Volume 91.3 80.0-100.0 fL Mean Corpuscular Hemoglobin 30.6 28.0-32.0 pg Mean Corpuscular Hemoglobin Concent 33.4 32.0-36.0 g/dL Red Cell Distribution Width 14.7 H 11.8-14.3 % Platelet Count 188 140-450 10^3/uL Mean Platelet Volume 9.0 6.9-10.8 fL Neutrophils (%) (Auto) 67.9 37.0-80.0 % Lymphocytes (%) (Auto) 21.0 10.0-50.0 % Monocytes (%) (Auto) 7.9 0.0-12.0 % Eosinophils (%) (Auto) 2.4 0.0-7.0 % Basophils (%) (Auto) 0.8 0.0-2.0 % Neutrophils # (Auto) 6.7 1.6-8.6 10 ^3/uL Lymphocytes # (Auto) 2.1 0.4-5.4 10 ^3/uL Monocytes # (Auto) 0.8 0-1.3 10 ^3/uL Eosinophils # (Auto) 0.2 0-0.8 10 ^3/uL Basophils # (Auto) 0.1 0-0.2 10 ^3/uL Nucleated Red Blood Cells 0.1 % Sodium Level 144 136-145 mmol/L Potassium Level 3.7 3.5-5.1 mmol/L Chloride Level 109 H 98-107 mmol/L Carbon Dioxide Level 29 20-31 mmol/L Anion Gap 6 5-15 Blood Urea Nitrogen 14 9-23 mg/dL Creatinine 0.88 0.700-1.30 mg/dL Glomerular Filtration Rate Calc 94 >90 mL/min BUN/Creatinine Ratio 15.9 10.0-20.0 Serum Glucose 104 74-106 mg/dL Calcium Level 9.6 8.7-10.4 mg/dL Total Bilirubin 0.3 0.2-1.0 mg/dL Aspartate Amino Transferase (AST) 26 13-40 U/L Alanine Aminotransferase (ALT) 18 7-40 U/L Alkaline Phosphatase 122 H 46-116 U/L Total Protein 6.3 5.7-8.2 g/dL Albumin 4.2 3.2-4.8 g/dL X-Ray, Labs, Meds, VS Comment 69 year old male with a Hx of HTN, Asthma , NV, CVA, and a Full Right Knee Replacement, presents to the ED for the c/c of a Mechanical Fall Injury. Patient arrives alert and oriented, ABC's intact, afebrile, vital signs stable, saturating well in room air CBC was ordered to exclude anemia, blood loss, or infection. BMP was ordered to exclude electrolyte abnormalities, renal failure, dehydration, hyperglycemia CMP was ordered to exclude electrolyte abnormalities, renal failure, dehydration, hyperglycemia and/or liver enzyme abnormalities. 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 Consulted with ortho Dr. Thomas who recommended a volar splint and they will see the patient for follow up in two weeks Additional MDM Review of External, Non-ED records: External records reviewed. Discussion with independent historian (EMS, family) history obtained from the patient/parents (if applicable) at bedside Chronic conditions affecting care: None Social determinants of health affecting care: None Time of 1ST Reevaluation: 14:07 Reevaluation 1ST: Unchanged Patient Education/Counseling: Diagnosis, Treatment Family Education/Counseling: No Family Present SEPSIS Sepsis Screen Physician Orders R Forearm Xray (12/24/24 12:57) R Hand 3 View Xray (12/24/24 12:57) Splints (12/24/24 ) Vital Signs Date Time Temp Pulse Resp B/P (MAP) Pulse Ox O2 Delivery O2 Flow Rate FiO2 12/24/24 17:08 77 18 144/80 (101) 96 12/24/24 17:08 77 18 96 Room Air 12/24/24 12:10 98.3 81 16 114/67 (83) 94 98.3 Laboratory Tests Test 12/24/24 13:22 White Blood Count 9.9 10^3/uL (4.4-10.8) Departure 1 Departure Time of Disposition: 16:11 Impression: Primary Impression: Distal radius fracture Qualified Codes: S52.501A - Unspecified fracture of the lower end of right radius, initial encounter for closed fracture Disposition: 01 HOME / SELF CARE / HOMELESS Condition: Fair e-Prescriptions Ibuprofen Micronized (Ibuprofen) 600 Mg Tab 600 MG PO TIDP PRN for 7 Days, #21 TAB 0 Refills Prov: BHAVIN BAY NP 12/24/24 Discharged With: Self Critical Care Note Critical Care Time?: No Stability Stability form required: No Heart Score Heart Score: Heart Score Response (Comments) Value History N/A 0 EKG N/A 0 Age N/A 0 Risk Factors N/A 0 Troponin N/A 0 Total 0 I personally scribed for BHAVIN BAY [employer] LIAISON ([email or web address]) on 12/24/24 at 13:49. Electronically submitted by Moses Escalera ([email or web address]). I personally scribed for BHAVIN BAY NP ([email or web address]) on 12/24/24 at 15:32. Electronically submitted by Moses Escalera ([email or web address]). BHAVIN BAY NP Dec 24, 2024 13:49
[2024-12-24 14:04] LABS: Hematocrit 49.3 % (41.0-53.0); Hemoglobin 16.5 g/dL (13.5-17.5); Mean Corpuscular Hemoglobin 30.6 pg (28.0-32.0); Mean Corpuscular Volume 91.3 fL (80.0-100.0); Nucleated Red Blood Cells % 0.1 %
[2024-12-24 14:21] LABS: Alanine Aminotransferase 18 U/L (7-40); Albumin 4.2 g/dL (3.2-4.8); Anion Gap 6 (5-15); BUN/Creatinine Ratio 15.9 (10.0-20.0); Bilirubin, Total 0.3 mg/dL (0.2-1.0); Blood Urea Nitrogen 14 mg/dL (9-23); Calcium 9.6 mg/dL (8.7-10.4); Carbon Dioxide 29 mmol/L (20-31); Glucose 104 mg/dL (74-106); Potassium 3.7 mmol/L (3.5-5.1); Sodium 144 mmol/L (136-145); Total Protein 6.3 g/dL (5.7-8.2)
[2024-12-24 14:26] LABS: Alkaline Phosphatase 122 U/L (46-116); Chloride 109 mmol/L (98-107)
[2024-12-24 15:41] LABS: Urine Protein, UAD Negative (Negative)
[2024-12-24] MEDS ORDERED: IBUP1TAB5 PO (16:11)
[2024-12-24] MEDS: HYDROcodone-ACET 5/325MG TAB PO ONE (16:51)
[2024-12-24 17:08] VITALS: BP 144/80; PULSE 77; RESP 18; O2SAT 96
== END 2024-12-24 17:10 | disposition home or self-care (01) ==
LOC: ER 11:51
DX: S52.571A Other intraarticular fracture of lower end of right radius, initial encounter for closed fracture (principal); I25.2 Old myocardial infarction; I10 Essential (primary) hypertension; Z86.73 Personal history of transient ischemic attack (TIA), and cerebral infarction without residual deficits; Z88.0 Allergy status to penicillin; Z79.899 Other long term (current) drug therapy; W19.XXXA Unspecified fall, initial encounter; Y93.89 Activity, other specified; Y92.89 Other specified places as the place of occurrence of the external cause; Y99.8 Other external cause status
CPT/HCPCS: 29125; 36415; 73090; 73130; 80053; 81001; 85025

== ENCOUNTER 2024-12-28 10:39 | Emergency (ER) | payer OTHER, MEDICAID ==
[~2024-12-28 10:39] MED LIST changes: +IBUP1TAB5 PO
--- NOTE | 2024-12-28 11:38 | ED.PDOC ---
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 Consulted with ortho Dr. Burns who recommended a volar splint and they will see the patient for follow up in two weeks HPI: 69 year old male presents to the emergency department with a chief complaint of RT forearm pain s/p fall onset today (12/28/24). Patient states he was using walker, tried to take out items from the refrigerator when he lost balance, fell, landed on RT forearm, is also experiencing LT ankle pain, with LT ankle monitor in place, rates pain 10/10. He was seen in this ED 12/24/24 for a mechanical fall, injury to RT arm as well. He is currently on Eliquis. No other symptoms or modifying factors present at this time. Patient is supposed to be using his walker at all times but he was not using it at that time. Initial Vitals BP: 119/80 HR: 82 RR: 18 O2 Sat: 95% Temp: 98.1F Past Medical history: HTN, LA, CVA, asthma, a-fib Past Surgical history: LT knee replacement Medications: Eliquis, losartan, metoprolol, amlodipine, Mirtazapine, Lasix Social History: Denies smoking, ETOH, and drug use. Allergies: NKDA HPI: Poor Historian. Mechanical fall. No head or neck injury. Not on blood thinners. REVIEW OF SYSTEMS: CONSTITUTIONAL: Denies acute: fever, diaphoresis, chills, generalized weakness. HEAD: Denies acute: headache, photophobia Eyes: Denies acute: Double vision, vision loss, eye pain, eye discharge. EARS: Denies acute: tinnitus, hearing loss, ear discharge, ear pain, THROAT: Denies acute: sore throat, swelling, difficulty swallowing , pain with swallowing, change in voice. NECK: Denies acute: neck pain, neck swelling, stiff neck. HEART: Denies acute : chest pain, palpitations, LUNGS: Denies acute: SOB, wheezing, cough, hemoptysis ABDOMEN: Denies acute: abdominal pain, Nausea, Vomiting, diarrhea, melena , hematemesis, hematochezia SKIN: Denies acute: rash, redness, lesions, itchiness. EXTREMITIES: Denies acute: calf pain, numbness, tingling, weakness, Denies acute: Low back pain. Neuro: Denies acute: focal neurological deficit, motor or sensory focal neurological deficit, tremors, seizure like activity, confusion, dizziness, change in mental status, loss of bowel or bladder function, cauda equina like symptoms. : Denies acute: dysuria, hematuria, flank pain, increase in urinary frequency. PSYCH: Denies acute: hallucination, suicidal ideation, homicidal ideation. PHYSICAL EXAM: General: ----no----acute distress, awake and alert. Head: normocephalic, atraumatic. Neck: supple, trachea is midline, no swelling. Throat: Normal phonation. Eyes:, no erythema, no purulent discharge, no proptosis, no icterus. Heart: regular rate, regular rhythm, no significant murmur appreciated. Lungs: no apparent respiratory distress, Able to speak in full sentences. No wheezing, no rhonchi, no crackles. No stridors Clear to auscultation bilaterally. Abdomen: non tender to palpation, non distended, soft, no guarding, no rebound, + bowel sounds. Obese Neuro: Awake, Alert, oriented to name, self, situation, follows commands GCS=15. Speech is normal. Skin: no petechia, no purpura, no cyanosis, non-pale, not jaundice. Lower extremities: --trace bilateral - Pitting edema no deformity, no focal swelling, no calf TTP. Makes eye contact. moves all four extremities. Face: no apparent facial droop. Evaluation of the left ankle: Patient is wearing a left ankle brace. Left late ral malleoli tenderness to palpation. Evaluation of the right forearm: Splint is in place from recent visit. Patient is able to wiggle his toes. 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 Normal capillary refill. ED COURSE: DISCLAIMER: This medical document was created using an electronic medical record system with voice recognition software and computerized dictation system. Although this document has been carefully reviewed, there might still be some phonetic and typographical errors. Occasional wrong-word or "sound-alike" substitutions may have occurred due to the inherent limitations of voice recognition software. These areas are purely typographical due to imperfections of the software programs and do not reflect any compromise in the patient's medical care. Please read the chart carefully and recognize, using context, where these substitutions have occurred. Chief Complaint: Fall Injury Time Seen by MD: 11:05 Primary Care Provider: CHEN Reviewed Notes: Medications, Allergies Allergies: Coded Allergies: Penicillins (Verified Allergy, Unknown, 10/18/24) Uncoded Allergies: polyester (Allergy, Mild, 10/18/24) "itch" Home Meds Active Scripts Ibuprofen Micronized (Ibuprofen) 600 Mg Tab, 600 MG PO TIDP PRN for 7 Days, #21 TAB 0 Refills Prov:BHAVIN BAY NP 12/24/24 Doxycycline Monohydrate (Doxycycline Monohydrate) 100 Mg Tab, 100 MG PO BID for 7 Days, #14 TAB Prov:JAMIE MAK MD 11/23/24 Amlodipine Besylate (Amlodipine Besylate) 10 Mg Tab, 1 TAB PO DAILY for 30 Days, #30 TAB 5 Refills Prov:STEWART MILLER RESIDENT 10/19/24 Metoprolol Succinate (Metoprolol Succinate Er) 25 Mg Tab, 1 TAB PO DAILY for 30 Days, #30 TAB 5 Refills Prov:STEWART MILLER RESIDENT 10/19/24 Reported Medications Lisinopril (Lisinopril) 20 Mg Tab, 1 TAB PO DAILY 11/21/24 Losartan Potassium (Losartan Potassium) 50 Mg Tab, 1 TAB PO DAILY 11/21/24 Furosemide (Furosemide) 40 Mg Tab, 1 TAB PO DAILY 11/21/24 Cetirizine Hcl (Zyrtec Allergy) 10 Mg Tab, 10 MG PO, TAB 11/21/24 Apixaban Base (ELIQUIS) 2.5 Mg Tab, 1 TAB PO BID 11/21/24 Mirtazapine (Mirtazapine Oral Disintegrating Tablet) 15 Mg Tab, 1 TAB PO 11/21/24 Pregabalin (Pregabalin) 100 Mg Cap, 1 CAP PO TID 11/21/24 Cholecalciferol (D-1000) 1,000 Unit Cap, 1 CAP PO DAILY 11/21/24 Albuterol Sulfate (Albuterol Sulfate) 0.083 % Neb, 1 VIAL NEB Q4HPRN, #50 VIAL 10/18/24 Nitroglycerin (NTROSTAT SUBLINGUAL) 0.4 Mg Sl, 0.4 MG SL PRN, TAB *MAY REPEAT EVERY 5 MINUTES X 3 TOTAL IF NO RELIEF, INITIATE ANALGESIC THERAPY. NOTIFY PHYSICIAN *Do not crush. 10/18/24 Diphenhydramine Hcl (BANOPHEN) 50 Mg Cap, 50 MG OR, CAP 10/18/24 Information Source: Patient Location: Right Extremity Location: Forearm Timing: Days Prehospital treatment: None Severity: Moderate Able to Move Extremity: Yes Bear Weight: Limited Pain: Moderate Mechanism: Spontaneous Circumstances: Fall Onset of Symptoms: After Trauma Symptoms: Swelling, Pain Past Medical History PAST MEDICAL HISTORY: CVA, HTN, LA, TIA Surgical History: Denies all surgeries Family History Family History: Reviewed,noncontributory to illness Social History Smoker: Non-Smoker Alcohol: Denies ETOH Use Drugs: Denies Drug Use Lives In: Home Was a procedure done? Was a procedure done?: No Differential Diagnosis EXT Differential Diagnosis: Deep Vein Thrombosis, Compartment Syndrome, Fracture, Sprain, Dislocation, Contusion, Strain, Neurovascular injury X-Ray, Labs, Meds, VS Vital Signs Date Time Temp Pulse Resp B/P (MAP) Pulse Ox O2 Delivery O2 Flow Rate FiO2 12/28/24 14:09 98.5 75 17 115/60 (78) 95 98.5 12/28/24 14:09 75 18 95 Room Air 12/28/24 12:46 97.4 75 16 121/75 (90) 94 97.4 [place] [address] Ph: [phone] DIAGNOSTIC IMAGING Diagnostic Imaging Report : [id number] Signed PATIENT: SUBHA BENNETT ALVINCCT: [id number] UNIT: [id number] : 1955 LOC: ER ROOM / BED: / AGE / SEX: 69 / M ADM STATUS: REG ER SERVICE 1103 ORDERING PHYSICIAN: NINA TREJO DO PROCEDURE(s): RFOR - R FOREARM XRAY REASON: fall, prior injury ORDER NUMBER(s): [id number], ACCESSION NUMBER(s): [id number] CLINICAL INDICATION: Trauma, prior injury TECHNIQUE: 3 radiographic views of the right forearm were obtained. Comparison: XY R FOREARM XRAY on DOS: 12/24/24 FINDINGS/IMPRESSION: There is no evidence of acute fracture or dislocation. Overlying casting material obscures evaluation of osseous detail. ATED BY: JONATHAN RAIN MD DICTATED DATE/TIME: 12/28/241143 SIGNED BY: JONATHAN RAIN MD SIGNED DATE/TIME: 12/28/241143 CC: [place] [address] Ph: [phone] DIAGNOSTIC IMAGING Diagnostic Imaging Report : [id number] Signed PATIENT: SUBHA BENNETTJUAN RCCT: [id number] UNIT: [id number] : 1955 LOC: ER ROOM / BED: / AGE / SEX: 69 / M ADM STATUS: REG ER SERVICE 02 ORDERING PHYSICIAN: NINA TREJO DO PROCEDURE(s): LANKL - L ANKLE 3 VIEW REASON: fall, twist. ORDER NUMBER(s): [id number], ACCESSION NUMBER(s): [id number] CLINICAL INDICATION: Trauma, pain. TECHNIQUE: 4 radiographic views of the left ankle were obtained. Comparison: None FINDINGS/IMPRESSION: Nondisplaced fracture of the distal fibula. Soft tissue swelling about the lateral ankle. ATED BY: JONATHAN RAIN MD DICTATED DATE/TIME: 12/28/241143 SIGNED BY: JONATHAN RAIN MD SIGNED DATE/TIME: 12/28/241143 CC: Time of 1ST Reevaluation: 11:35 Reevaluation 1ST: Unchanged Patient Education/Counseling: Diagnosis, Treatment Family Education/Counseling: No Family Present Comments MDM: patient presented with the above HPI.-extremity injury-----workup was initiated. patient was found with the above mentioned diagnosis. the following medications were ordered: please refer to order lists of meds and tests obtained by myself Dr. Trejo. Patient ED course and VS have been stabilized. Patient has been reassessed in the ED and remained in a stable condition. Pertinent incidental findings were discussed with the patient and/or family. Patient/family voices understanding and is agreeable with plan. Patient has been observed in the ED adequate length of time to insure improvement/stability. Escalation of care considered: Consideration of escalation to observation or admission Splint was ordered for the patient and crutches Patient was DISCHARGED home in a stable condition. All the reports of any imaging studies that were ordered by myself were reviewed by myself. Departure 1 Departure Time of Disposition: 13:45 Impression: Primary Impression: Fracture of distal end of left fibula Disposition: HOME / SELF CARE / HOMELESS Condition: Stable Additional Instructions: Additional instructions: You MUST follow-up with your primary care/family doctor in 1 to 2 days. If you are unable to see your primary care/family doctor, please return to our emergency room for re-assessment and re-evaluation in 1 to 2 days. Return to the emergency room here in our facility or to the nearest ER NIC if your symptoms change or worsen. CONSULTATIONS: you MUST Follow-up for consultation as soon as possible with: -orthopedic doctor in 1-2 days. Please call for appointment. You MUST call the consultants office yourself to make an appointment. You may need to arrange that through your insurance and/or your primary/family doctor. If you are unable to see the design sales consultant in 1 to 2 days, you must return to our emergency room (or any other ER of your choice) for re-assessment and re- evaluation. Adequate fluid hydration. Fall precautions. Nonweightbearing on your affected left extremity Below is a copy of your radiological report for follow up: [address] [address] Ph: [phone] DIAGNOSTIC IMAGING Diagnostic Imaging Report : [id number] Signed PATIENT: SUBHA BENNETT ACCT: [id number] UNIT: [id number] : 1955 LOC: ER ROOM / BED: / AGE / SEX: 69 / M ADM STATUS: REG ER SERVICE 1103 ORDERING PHYSICIAN: NINA TREJO DO PROCEDURE(s): LANKL - L ANKLE 3 VIEW REASON: fall, twist. ORDER NUMBER(s): [id number], ACCESSION NUMBER(s): [id number] CLINICAL INDICATION: Trauma, pain. TECHNIQUE: 4 radiographic views of the left ankle were obtained. Comparison: None FINDINGS/IMPRESSION: Nondisplaced fracture of the distal fibula. Soft tissue swelling about the late ral ankle. ATED BY: JONATHAN RAIN MD DICTATED DATE/TIME: 12/28/24 114 SIGNED BY: JONATHAN RAIN MD SIGNED DATE/TIME: 12/28/24 114 CC: [place] [address] Ph: [phone] DIAGNOSTIC IMAGING Diagnostic Imaging Report : [id number] Signed PATIENT: SUBHA BENNETT ACCT: [id number] UNIT: [id number] : 1955 LOC: ER ROOM / BED: / AGE / SEX: 69 / M ADM STATUS: REG ER SERVICE 1103 ORDERING PHYSICIAN: NINA TREJO DO PROCEDURE(s): RFOR - R FOREARM XRAY REASON: fall, prior injury ORDER NUMBER(s): [id number], ACCESSION NUMBER(s): [id number] CLINICAL INDICATION: Trauma, prior injury TECHNIQUE: 3 radiographic views of the right forearm were obtained. Comparison: XY R FOREARM XRAY on DOS: 12/24/24 FINDINGS/IMPRESSION: There is no evidence of acute fracture or dislocation. Overlying casting material obscures evaluation of osseous detail. ATED BY: JONATHAN RAIN MD DICTATED DATE/TIME: 12/28/24 114 SIGNED BY: JONATAHN RAIN MD SIGNED DATE/TIME: 12/28/24 114 CC: Discharged With: Self Critical Care Note Critical Care Time?: No I personally scribed for NINA TREJO DO ([email or web address]) on 12/28/24 at 11:38. Electronically submitted by Jaimee Davis ([email or web address]). I personally scribed for NINA TREJO DO ([email or web address]) on 12/28/24 at 12:37. Electronically submitted by Jaimee Davis ([email or web address]). I personally scribed for NINA TREJO DO ([email or web address]) on 12/28/24 at 13:40. Elect ronically submitted by Jaimee Davis ([email or web address]). NINA TREJO DO Dec 28, 2024 11:38
--- NOTE | 2024-12-28 11:46 | DVH ---
CLINICAL INDICATION: Trauma, prior injury TECHNIQUE: 3 radiographic views of the right forearm were obtained. Comparison: XY R FOREARM XRAY on DOS: 12/24/24 FINDINGS/IMPRESSION: There is no evidence of acute fracture or dislocation. Overlying casting material obscures evaluation of osseous detail.
--- NOTE | 2024-12-28 11:47 | DVH ---
CLINICAL INDICATION: Trauma, pain. TECHNIQUE: 4 radiographic views of the left ankle were obtained. Comparison: None FINDINGS/IMPRESSION: Nondisplaced fracture of the distal fibula. Soft tissue swelling about the lateral ankle.
[2024-12-28 14:09] VITALS: BP 115/60; PULSE 75; RESP 18; TEMP 98.5; O2SAT 95
== END 2024-12-28 15:24 | disposition home or self-care (01) ==
LOC: ER 10:50
DX: S82.832A Other fracture of upper and lower end of left fibula, initial encounter for closed fracture (principal); I10 Essential (primary) hypertension; I48.91 Unspecified atrial fibrillation; J45.909 Unspecified asthma, uncomplicated; Z79.01 Long term (current) use of anticoagulants; Z79.899 Other long term (current) drug therapy; Z86.73 Personal history of transient ischemic attack (TIA), and cerebral infarction without residual deficits; Z88.0 Allergy status to penicillin; Z96.652 Presence of left artificial knee joint; W18.39XA Other fall on same level, initial encounter; Y93.89 Activity, other specified; Y92.89 Other specified places as the place of occurrence of the external cause; Y99.8 Other external cause status
CPT/HCPCS: 29125; 73090; 73610

== ENCOUNTER 2025-01-01 13:57 | Emergency (ER) | payer OTHER, MEDICAID ==
[~2025-01-01] VITALS: Ht 188 cm; Wt 132.0 kg
--- NOTE | 2025-01-01 14:36 | ED.PDOC ---
Musculoskeletal HPI Comments 69 year old Right Handed male presents to the ED for the c/c of a previous fracture Dx to the right forearm. Pt states that he was here at [facility] last week and, but has since returned to have a repeat X-Ray because he is going to see Ortho tomorrow. Pt admits he ortho required new XRAY for comparison. Denies fevers chills night sweats nausea vomiting redness around the shoulder Denies previous surgeries to the Right arm or significant injury Denies changes, shortness of breath Time Seen by MD: 14:26 Primary Care Provider: CHEN Reviewed Notes: Nurses Notes, Medications, Allergies Allergies: Coded Allergies: Penicillins (Verified Allergy, Unknown, 10/18/24) Uncoded Allergies: polyester (Allergy, Mild, 10/18/24) "itch" Home Meds Active Scripts Ibuprofen Micronized (Ibuprofen) 600 Mg Tab, 600 MG PO TIDP PRN for 7 Days, #21 TAB 0 Refills Prov:BHAVIN BAY NP 12/24/24 Doxycycline Monohydrate (Doxycycline Monohydrate) 100 Mg Tab, 100 MG PO BID for 7 Days, #14 TAB Prov:JAMIE MAK MD 11/23/24 Amlodipine Besylate (Amlodipine Besylate) 10 Mg Tab, 1 TAB PO DAILY for 30 Days, #30 TAB 5 Refills Prov:STEWART MILLER RESIDENT 10/19/24 Metoprolol Succinate (Metoprolol Succinate Er) 25 Mg Tab, 1 TAB PO DAILY for 30 Days, #30 TAB 5 Refills Prov:STEWART MILLER RESIDENT 10/19/24 Reported Medications Lisinopril (Lisinopril) 20 Mg Tab, 1 TAB PO DAILY 11/21/24 Losartan Potassium (Losartan Potassium) 50 Mg Tab, 1 TAB PO DAILY 11/21/24 Furosemide (Furosemide) 40 Mg Tab, 1 TAB PO DAILY 11/21/24 Cetirizine Hcl (Zyrtec Allergy) 10 Mg Tab, 10 MG PO, TAB 11/21/24 Apixaban Base (ELIQUIS) 2.5 Mg Tab, 1 TAB PO BID 11/21/24 Mirtazapine (Mirtazapine Oral Disintegrating Tablet) 15 Mg Tab, 1 TAB PO 11/21/24 Pregabalin (Pregabalin) 100 Mg Cap, 1 CAP PO TID 11/21/24 Cholecalciferol (D-1000) 1,000 Unit Cap, 1 CAP PO DAILY 11/21/24 Albuterol Sulfate (Albuterol Sulfate) 0.083 % Neb, 1 VIAL NEB Q4HPRN, #50 VIAL 10/18/24 Nitroglycerin (NTROSTAT SUBLINGUAL) 0.4 Mg Sl, 0.4 MG SL PRN, TAB *MAY REPEAT EVERY 5 MINUTES X 3 TOTAL IF NO RELIEF, INITIATE ANALGESIC THERAPY. NOTIFY PHYSICIAN *Do not crush. 10/18/24 Diphenhydramine Hcl (BANOPHEN) 50 Mg Cap, 50 MG OR, CAP 10/18/24 Information Source: Patient, Relative (Child) Mode of Arrival: Wheelchair Location: Right Extremity Location: Arm Timing: Weeks Prehospital treatment: None Severity: Moderate Able to Move Extremity: No Bear Weight: Limited Pain: Moderate Hand Dominance: Right Mechanism: Spontaneous Circumstances: Unknown Onset of Symptoms: After Trauma Symptoms: Swelling, Pain DVT Risk Factors: CHF Last Tetanus: UTD Associated signs and symptoms: Arm pain Past Medical History PAST MEDICAL HISTORY: CVA, HTN, [place], TIA Surgical History: Denies all surgeries Family History Family History: Reviewed,noncontributory to illness Social History Smoker: Non-Smoker Alcohol: Denies ETOH Use Drugs: Denies Drug Use Lives In: Home Constitutional: denies: chills, diaphoresis, fatigue, fever, malaise, sweats, weakness, others EENTM: denies: blurred vision, double vision, ear bleeding, ear discharge, ear drainage, ear pain, ear ringing, eye pain, eye redness, hearing loss, mouth pain, mouth swelling, nasal discharge, nose bleeding, nose congestion, nose pain, photophobia, tearing, throat pain, throat swelling, voice changes, others Respiratory: denies: cough, hemoptysis, orthopnea, SOB at rest, shortness of breath, SOB with excertion, stridor, wheezing, others Cardiovascular: denies: chest pain, dizzy spells, diaphoresis, Dyspnea on exertion, edema, irregular heart beat, left arm pain, lightheadedness, palpitations, PND, syncope, others Gastrointestinal: denies: abdomen distended, abdominal pain, blood streaked bowels, constipated, diarrhea, dysphagia, difficulty swallowing, hematemesis, melena, nausea, poor appetite, poor fluid intake, rectal bleeding, rectal pain, vomiting, others Genitourinary: denies: burning, dysuria, flank pain, frequency, hematuria, incontinence, penile discharge, penile sore, pain, testicle pain, testicle swelling, urgency, others Neurological: denies: dizziness, fainting, headache, left sided numbness, left sided weakness, numbness, paresthesia, pre-existing deficit, right sided numbness, right sided weakness, seizure, speech problems, tingling, tremors, weakness, others Musculoskeletal: reports: others (See HPI); denies: back pain, gout, joint pain, joint swelling, muscle pain, muscle stiffness, neck pain Integumetry: denies: bruises, change in color, change in hair/nails, dryness, laceration, lesions, lumps, rash, wounds, others Allergic/Immunocompromised: denies: Difficulty Healing, Frequent Infections, Hives, Itching, others Hematologic/Lymphatic: denies: anemia, blood clots, easy bleeding, easy bruising, swollen glands, others Endocrine: denies: excessive hunger, excessive sweating, excessive thirst, excessive urination, flushing, intolerance to cold, intolerance to heat, unexplained weight gain, unexplained weight loss, others Psychiatric: denies: anxiety, bipolar disorder, depression, hopeless, panic di sorder, schizophrenia, sleepless, suicidal, others All Other Systems: Reviewed and Negative Physical Exam General Appearance: Mild Distress, Normal, Obese HEENT: Normal ENT Inspection, Pharynx Normal, TMs Normal Neck: Full Range of Motion, Non-Tender, Normal, Normal Inspection Respiratory: Chest Non-Tender, Lungs Clear, No Accessory Muscle Use, No Respiratory Distress, Normal Breath Sounds Cardiovascular: No Murmur, Regular Rate/Rhythm Breast Exam: Deferred Gastrointestinal: Non Tender, No Pulsatile Mass, Normal Bowel Sounds, Soft Genitalia: Deferred Pelvic: Deferred Rectal: Deferred Extremities: No calf tenderness, No pedal edema Musculoskeletal : Location: Right Extremity Location: Arm (Cast around Right arm from previous Fracture Dx, Localized TTP to Right Forearm, Neuro Vascular Sensitivity intact. Radial pulse 2 +) Apperance: Normal Neurologic: Alert, No Motor Deficits, Normal Mood Cerebellar Function: Normal Reflexes: Normal Skin: Dry, Normal Color, Warm Lymphatic: No Adenopathy Was a procedure done? Was a procedure done?: No Differential Diagnosis EXT Differential Diagnosis: Cellulitis, Fracture, Sprain, Dislocation, Contusion, Strain, Neurovascular injury X-Ray, Labs, Meds, VS Vital Signs Date Time Temp Pulse Resp B/P (MAP) Pulse Ox O2 Delivery O2 Flow Rate FiO2 01/01/25 17:38 98 16 98 Room Air 01/01/25 17:38 98.7 87 16 156/89 (111) 98 98.7 01/01/25 14:07 98.1 89 18 113/78 (90) 92 98.1 PATIENT: SUBHA BENNETT ACCT: [id number] UNIT: [id number] : 1955 LOC: ER ROOM / BED: / AGE / SEX: 69 / M ADM STATUS: REG ER SERVICE 141 ORDERING PHYSICIAN: BHAVIN BAY NP PROCEDURE(s): RFOR - R FOREARM XRAY REASON: hx of fracture. comparrison study ORDER NUMBER(s): [id number], ACCESSION NUMBER(s): [id number] XY R FOREARM XRAY, INDICATION: hx of fracture. comparrison study TECHNICAL DATA: Frontal and lateral views were obtained of the right forearm. COMPARISON: XY R FOREARM XRAY on DOS: 12/28/24, XY R FOREARM XRAY on DOS: 12/24/24 FINDINGS: There is an overlying cast, and the distal radius fracture appears stable to the prior from 12/24/24. Soft tissues are normal. IMPRESSION: Overlying cast, and the distal radius fracture appears stable to the prior from 12/24/24. ATED BY: ENEL DACOSTA MD DICTATED DATE/TIME: 01/01/251699 SIGNED BY: NEEL DACOSTA MD SIGNED DATE/TIME: 01/01/251699 CC: X-Ray, Labs, Meds, VS Comment 69 year old Right Handed male presents to the ED for the c/c of a previous fracture Dx to the right arm. Patient arrives alert and oriented, ABC's intact, afebrile, vital signs stable, saturating well in room air Right Arm X-Ray Ordered: Diagnostic imaging ordered by me and results interpreted by radiology :IMPRESSION: Overlying cast, and the distal radius fracture appears stable to the prior from 12/24/24. Patient is stable for discharge at this time. External notes reviewed. Test results and diagnostic imaging interpreted. All diagnostic findings, discharge care, education and instructions provided Follow-up with PCP in 2 to 3 days Patient verbalized understanding and agreed to treatment plan Vital signs stable, afebrile, no acute distress noted Patient ambulatory with strong steady gait Advised to return precautions for any new or worsening symptoms, return to ER immediately for re-evaluation Patient is aware that the purpose of this visit was for an acute medical emergency requiring emergent stabilization. Chronic conditions, including malignancies have not been ruled out. Patient is instructed to follow up with PCP as directed and discharge instructions for continued care and workup. If unable to arrange follow-up, patient is to return to the emergency department for reassessment. Patient (parent or legal guardian if applicable) was given verbal and written discharge instructions and acknowledges understanding. Additional MDM Review of External, Non-ED records: External records reviewed. Discussion with independent historian (EMS, family) history obtained from the patient/parents (if applicable) at bedside Chronic conditions affecting care: None Social determinants of health affecting care: None Time of 1ST Reevaluation: 14:57 Reevaluation 1ST: Unchanged Time of 2ND Reevaluation: 17:00 Reevaluation 2ND: Improved Patient Education/Counseling: Diagnosis, Treatment Family Education/Counseling: Diagnosis, Treatment Departure 1 Departure Time of Disposition: 17:11 Impression: Primary Impression: Radial fracture Qualified Codes: S52.501S - Unspecified fracture of the lower end of right radius, sequela Disposition: 01 HOME / SELF CARE / HOMELESS Condition: Stable Critical Care Note Critical Care Time?: No Stability Stability form required: No Heart Score Heart Score: Heart Score Response (Comments) Value History N/A 0 EKG N/A 0 Age N/A 0 Risk Factors N/A 0 Troponin N/A 0 Total 0 I personally scribed for BHAVIN BAY NP ([email or web address]) on 01/01/25 at 14:36. Electronically submitted by Moses Escalera ([email or web address]). I personally scribed for BHAVIN BAY NP ([email or web address]) on 01/01/25 at 17:05. Electronically submitted by Moses Escalera ([email or web address]). BHAVIN BAY NP Jan 01, 2025 14:36
--- NOTE | 2025-01-01 17:02 | DVH ---
XY R FOREARM XRAY, INDICATION: hx of fracture. comparrison study TECHNICAL DATA: Frontal and lateral views were obtained of the right forearm. COMPARISON: XY R FOREARM XRAY on DOS: 12/28/24, XY R FOREARM XRAY on DOS: 12/24/24 FINDINGS: There is an overlying cast, and the distal radius fracture appears stable to the prior from 12/24/24. S oft tissues are normal. IMPRESSION: Overlying cast, and the distal radius fracture appears stable to the prior from 12/24/24.
[2025-01-01 17:38] VITALS: BP 156/89; PULSE 98; RESP 16; TEMP 98.7; O2SAT 98
== END 2025-01-01 17:59 | disposition home or self-care (01) ==
LOC: ER 13:57
DX: S52.501S Unspecified fracture of the lower end of right radius, sequela (principal); I10 Essential (primary) hypertension; I21.9 Acute myocardial infarction, unspecified; Z86.73 Personal history of transient ischemic attack (TIA), and cerebral infarction without residual deficits; Z88.0 Allergy status to penicillin; Z79.899 Other long term (current) drug therapy; Z79.01 Long term (current) use of anticoagulants; X58.XXXA Exposure to other specified factors, initial encounter; Y93.89 Activity, other specified; Y92.89 Other specified places as the place of occurrence of the external cause; Y99.8 Other external cause status
CPT/HCPCS: 29125; 73090

== ENCOUNTER 2025-03-06 12:12 | Emergency (ER) | payer OTHER, MEDICAID ==
[~2025-03-06] VITALS: Ht 188 cm; Wt 128.0 kg
[2025-03-06 12:15] VITALS: BP 127/78; PULSE 86; RESP 18; TEMP 97.7; O2SAT 95
--- NOTE | 2025-03-06 13:15 | ED.PDOC ---
Musculoskeletal HPI Comments A 69 YEAR OLD MALE PRESENTS TO THE ED WITH SPOUSE AND THE CHIEF COMPLAINT OF POSSIBLE SHOULDER DISLOCATION. PATIENT REPORTS ON FALLING 2 MONTHS AGO AND POSSIBLY DISLOCATING HIS LEFT SHOULDER, PATIENT WENT TO THIS ER THAT IS SAME DAY BUT BE WERE MORE CONCERNED ABOUT THE PATIENT'S HEART THEN THE SHOULDER. THE SPOUSE STATED THAT THEY INFORMED HIM TO COME BACK TO THE ER ANOTHER DAY FOR THE SHOULDER. SPOUSE NOTES THAT THE PATIENT HAS BEEN UNABLE TO SLEEP DUE FROM THE PAIN. PATIENT DOES HAVE A PRIOR MEDICAL HISTORY OF CVA. PATIENT DENIES FEVER, CHILLS, SHORTNESS OF BREATH, CHEST PAIN, ABDOMINAL PAIN, NAUSEA, VOMITING, HEADACHE, OR OTHER COMPLAINTS. NO OTHER SYMPTOMS OR MODIFYING FACTORS AT THIS TI ME. PATIENT IS ALERT, ORIENTED X 4, AND HAS STEADY GAIT. Chief Complaint: Upper Extremity Time Seen by MD: 12:55 Primary Care Provider: CHEN Reviewed Notes: Nurses Notes, Medications, Allergies Allergies: Coded Allergies: Penicillins (Verified Allergy, Unknown, 10/18/24) Uncoded Allergies: polyester (Allergy, Mild, 10/18/24) "itch" Home Meds Active Scripts Tramadol HCl (Tramadol HCl) 50 Mg Tab, 50 MG PO BID, #20 TAB Prov:THOMPSON PACHECO 03/06/25 Ibuprofen Micronized (Ibuprofen) 600 Mg Tab, 600 MG PO TIDP PRN for 7 Days, #21 TAB 0 Refills Prov:BHAVIN BAY NP 12/24/24 Doxycycline Monohydrate (Doxycycline Monohydrate) 100 Mg Tab, 100 MG PO BID for 7 Days, #14 TAB Prov:JAMIE MAK MD 11/23/24 Amlodipine Besylate (Amlodipine Besylate) 10 Mg Tab, 1 TAB PO DAILY for 30 Days, #30 TAB 5 Refills Prov:STEWART MILLER RESIDENT 10/19/24 Metoprolol Succinate (Metoprolol Succinate Er) 25 Mg Tab, 1 TAB PO DAILY for 30 Days, #30 TAB 5 Refills Prov:STEWART MILLER RESIDENT 10/19/24 Reported Medications Lisinopril (Lisinopril) 20 Mg Tab, 1 TAB PO DAILY 11/21/24 Losartan Potassium (Losartan Potassium) 50 Mg Tab, 1 TAB PO DAILY 11/21/24 Furosemide (Furosemide) 40 Mg Tab, 1 TAB PO DAILY 11/21/24 Cetirizine Hcl (Zyrtec Allergy) 10 Mg Tab, 10 MG PO, TAB 11/21/24 Apixaban Base (ELIQUIS) 2.5 Mg Tab, 1 TAB PO BID 11/21/24 Mirtazapine (Mirtazapine Oral Disintegrating Tablet) 15 Mg Tab, 1 TAB PO 11/21/24 Pregabalin (Pregabalin) 100 Mg Cap, 1 CAP PO TID 11/21/24 Cholecalciferol (D-1000) 1,000 Unit Cap, 1 CAP PO DAILY 11/21/24 Albuterol Sulfate (Albuterol Sulfate) 0.083 % Neb, 1 VIAL NEB Q4HPRN, #50 VIAL 10/18/24 Nitroglycerin (NTROSTAT SUBLINGUAL) 0.4 Mg Sl, 0.4 MG SL PRN, TAB *MAY REPEAT EVERY 5 MINUTES X 3 TOTAL IF NO RELIEF, INITIATE ANALGESIC THERAPY. NOTIFY PHYSICIAN *Do not crush. 10/18/24 Diphenhydramine Hcl (BANOPHEN) 50 Mg Cap, 50 MG OR, CAP 10/18/24 Information Source: Patient, Spouse Mode of Arrival: Wheelchair Location: Left Extremity Location: Shoulder Timing: Months Prehospital treatment: None Severity: Moderate Able to Move Extremity: Yes Bear Weight: Limited Pain: Moderate Hand Dominance: Right Mechanism: Spontaneous Circumstances: Fall Onset of Symptoms: After Trauma Symptoms: Pain DVT Risk Factors: NONE Last Tetanus: Unknown History of: Shoulder Dislocation (POSSIBLE) Associated signs and symptoms: Shoulder pain Past Medical History PAST MEDICAL HISTORY: CVA, HTN, MS, TIA Surgical History: Denies all surgeries Family History Family History: Reviewed,noncontributory to illness, Unknown Social History Smoker: Non-Smoker Alcohol: Denies ETOH Use Drugs: Denies Drug Use Lives In: Home Constitutional: denies: chills, diaphoresis, fatigue, fever, malaise, sweats, weakness, others EENTM: denies: blurred vision, double vision, ear bleeding, ear discharge, ear drainage, ear pain, ear ringing, eye pain, eye redness, hearing loss, mouth pain, mouth swelling, nasal discharge, nose bleeding, nose congestion, nose pain, photophobia, tearing, throat pain, throat swelling, voice changes, others Respiratory: denies: cough, hemoptysis, orthopnea, SOB at rest, shortness of breath, SOB with excertion, stridor, wheezing, others Cardiovascular: denies: chest pain, dizzy spells, diaphoresis, Dyspnea on exertion, edema, irregular heart beat, left arm pain, lightheadedness, palpitations, PND, syncope, others Gastrointestinal: denies: abdomen distended, abdominal pain, blood streaked bowels, constipated, diarrhea, dysphagia, difficulty swallowing, hematemesis, melena, nausea, poor appetite, poor fluid intake, rectal bleeding, rectal pain, vomiting, others Genitourinary: denies: burning, dysuria, flank pain, frequency, hematuria, incontinence, penile discharge, penile sore, pain, testicle pain, testicle swelling, urgency, others Neurological: denies: dizziness, fainting, headache, left sided numbness, left sided weakness, numbness, paresthesia, pre-existing deficit, right sided numbness, right sided weakness, seizure, speech problems, tingling, tremors, weakness, others Musculoskeletal: reports: joint pain, muscle pain, others (LEFT SHOULDER PAIN); denies: back pain, gout, joint swelling, muscle stiffness, neck pain Integumetry: denies: bruises, change in color, change in hair/nails, dryness, laceration, lesions, lumps, rash, wounds, others Allergic/Immunocompromised: denies: Difficulty Healing, Frequent Infections, Hives, Itching, others Hematologic/Lymphatic: denies: anemia, blood clots, easy bleeding, easy bruising, swollen glands, others Endocrine: denies: excessive hunger, excessive sweating, excessive thirst, excessive urination, flushing, intolerance to cold, intolerance to heat, unexplained weight gain, unexplained weight loss, others Psychiatric: denies: anxiety, bipolar disorder, depression, hopeless, panic disorder, schizophrenia, sleepless, suicidal, others All Other Systems: Reviewed and Negative Physical Exam General Appearance: No Apparent Distress, Normal HEENT: Normal ENT Inspection, PERRL/EOMI, Pharynx Normal, TMs Normal Neck: Full Range of Motion, Non-Tender, Normal, Normal Inspection Respiratory: Chest Non-Tender, Lungs Clear, No Accessory Muscle Use, No Respiratory Distress, Normal Breath Sounds Cardiovascular: No Edema, No JVD, No Murmur, No Gallop, Normal Peripheral Pulses, Regular Rate/Rhythm Breast Exam: Deferred Gastrointestinal: No Organomegaly, Non Tender, No Pulsatile Mass, Normal Bowel Sounds, Soft Genitalia: Deferred Pelvic: Deferred Rectal: Deferred Extremities: Decreased range of motion, No calf tenderness, Normal capillary refill, Normal inspection, No pedal edema, Tender (LEFT SHOULDER, NO SWELLING AND DEFORMITY. ROM DECREASING. ) Musculoskeletal : Apperance: Normal Neurologic: Alert, television mechanic II-XII nml as Tested, No Motor Deficits, Normal Affect, Normal Mood, No Sensory Deficits Cerebellar Function: Normal Reflexes: Normal Skin: Dry, Normal Color, Warm Peripheral Pulses: 2+ carotid (R), 2+ carotid (L), 2+ Radial (R), 2+ Radial (L) Lymphatic: No Adenopathy Was a procedure done? Was a procedure done?: No Differential Diagnosis EXT Differential Diagnosis: Fracture, Sprain, Dislocation, DJD, Bursitis X-Ray, Labs, Meds, VS Vital Signs Date Time Temp Pulse Resp B/P (MAP) Pulse Ox O2 Delivery O2 Flow Rate FiO2 03/06/25 12:15 97.7 86 18 127/78 95 97.7 [place] [address] Ph: [phone] DIAGNOSTIC IMAGING Diagnostic Imaging Report : [id number] Signed PATIENT: SUBHA BENNETTSHERMANCCT: [id number] UNIT: [id number] : 1955 LOC: ER ROOM / BED: / AGE / SEX: 69 / M ADM STATUS: REG ER SERVICE 1301 ORDERING PHYSICIAN: THOMPSON PACHECO PROCEDURE(s): LSHD2 - L SHOULDER 2+ VIEW XRAY REASON: PER PT, DISLOCATION FOR 2 MONTHS ORDER NUMBER(s): [id number], ACCESSION NUMBER(s): [id number] CLINICAL INDICATION: PER PT, DISLOCATION FOR 2 MONTHS TECHNIQUE: 3 radiographic views of the left shoulder were obtained. Comparison: XY L SHOULDER 2+ VIEW XRAY on DOS: 10/24/24, XY L SHOULDER 2+ VIEW XRAY on DOS: 10/17/24 FINDINGS/IMPRESSION: There is no evidence of acute fracture or dislocation. [id number] degenerative changes of the left AC joint. Mild degenerative changes of the glenohumeral joint. The alignment is anatomical. There is no radiopaque foreign body. The visualized lungs are clear. ATED BY: MARIEL TOLEDO DO DICTATED DATE/TIME: 03/06/254 SIGNED BY: MARIEL TOLEDO DO SIGNED DATE/TIME: 03/06/251333 CC: X-Ray, Labs, Meds, VS Comment EXTERNAL MEDICAL RECORDS REVIEWED: [NONE] INDEPENDENT HISTORIANS: [NONE] SOCIAL DETERMINANTS OF HEALTH: [NONE] LABS ORDERED: NONE REVIEWED AND INTERPRETED RESULTS: NONE IMAGING ORDERED: LEFT SHOULDER X-RAY TREATMENTS ORDERED: NORCO PO PROCEDURES PERFORMED: NONE CRITICAL CARE TIME: NONE I HAVE DISCUSSED THE PATIENT WITH THE ATTENDING PHYSICIAN DR. LUCERO AND HE AGREES WITH THE PATIENT'S PLAN OF CARE AND DISPOSITION. BASED ON HISTORY OF PRESENT ILLNESS, AND PHYSICAL EXAM, PATIENT WILL BE DISCHARGED HOME. DISCUSSED PLAN FOR DISCHARGE HOME WITH RX [ULTRAM 50MG ]. MEDICATION WARNINGS GIVEN. SHARED DECISION MAKING: DISCUSSED WITH PATIENT THAT THEIR WORKUP WAS NORMAL. PATIENT INSTRUCTED TO FOLLOW UP WITH PRIMARY CARE PROVIDER IN 1-2 DAYS FOR RE- EVALUATION OF SYMPTOMS. PATIENT VERBALIZES UNDERSTANDING TO RETURN TO ED FOR NEW OR WORSENING SYMPTOMS OR IF FOLLOW UP WITH PCP CANNOT BE OBTAINED. PATIENT FEELS COMFORTABLE GOING HOME AT THIS TIME. ALL QUESTIONS ADDRESSED AT TIME OF DISCHARGE. 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 TAKE MEDICATIONS PRESCRIBED. RETURN TO ED FOR ANY NEW OR WORSENING SYMPTOMS. e-Prescriptions Tramadol HCl (Tramadol HCl) 50 Mg Tab 50 MG PO BID, #20 TAB Prov: THOMPSON PACHECO 03/06/25 Discharged With: Self, Relative Critical Care Note Critical Care Time?: No (WAS 1) Stability Stability form required: No I personally scribed for THOMPSON PACHECO ([email or web address]) on 03/06/25 at 13:15. Electronically submitted by Martin Martínez ([email or web address]). I personally scribed for THOMPSON PACHECO ([email or web address]) on 03/06/25 at 14:22. Electronically submitted by Martin Martínez ([email or web address]). I personally scribed for THOMPSON PACHECO ([email or web address]) on 03/06/25 at 14:26. Electronically submitted by Martin Martínez ([email or web address]). THOMPSON PACHECO Mar 06, 2025 13:15
--- NOTE | 2025-03-06 13:36 | DVH ---
CLINICAL INDICATION: PER PT, DISLOCATION FOR 2 MONTHS TECHNIQUE: 3 radiographic views of the left shoulder were obtained. Comparison: XY L SHOULDER 2+ VIEW XRAY on DOS: 10/24/24, XY L SHOULDER 2+ VIEW XRAY on DOS: 10/17/24 FINDINGS/IMPRESSION: There is no evidence of acute fracture or dislocation. [id number] degenerative changes of the l eft AC joint. Mild degenerative changes of the glenohumeral joint. The alignment is anatomical. There is no radiopaque foreign body. The visualized lungs are clear.
[2025-03-06] MEDS ORDERED: TRAM-626 PO (14:27)
[2025-03-06] MEDS: HYDROcodone-ACET 10/325MG TAB PO ONE ×2 (14:48)
== END 2025-03-06 14:49 | disposition home or self-care (01) ==
LOC: ER 12:12
DX: M19.90 Unspecified osteoarthritis, unspecified site (principal); Z86.73 Personal history of transient ischemic attack (TIA), and cerebral infarction without residual deficits; Z88.0 Allergy status to penicillin; Z79.899 Other long term (current) drug therapy
CPT/HCPCS: 73030